=== PATIENT | female | born 1970 | race African-American/Black ===

== ENCOUNTER 2016-09-16 13:26 | Inpatient (IN) | payer BC ==
--- NOTE | 2016-09-16 15:35 | PDOC ---
Attending Attestation - Resident Resident Name: Abdoulaye Bangura - ED Attending Attestation I have performed the following: I have examined & evaluated the patient, The case was reviewed & discussed with the resident, I agree w/resident's findings & plan, Exceptions are as noted - HPI HPI: 09/16/16 17:36 46 yo F presenting to the ER with a complaint of throat pain Pt has a history of HTN and protein C def (on coumadin) and reports 2 days of worsening throat pain. She was seen by Dr Jarvis kent who evaluated upper airways Pt was sent in for admission for suspected epiglottitis. Secretions are manageable. Denies fever, CP, SOB, palpitations, N/V. 09/16/16 17:41 - Physicial Exam PE: 09/16/16 17:44 Pt resting comfortable in bed Pt is NOT assuming sniffer's position No stridor No drooling Lungs clear - Medical Decision Making 09/16/16 17:44 Will give abx Will monitor at nurse's station Will admit to Hospitalist Service Heart Score/ECG Review #1 ECG reviewed & interpreted by me at: 17:49 09/16/16 17:49 Twelve-lead EKG was performed and reviewed by me. There is normal sinus rhythm with a normal rate of 72 bpm. The axis is normal. The intervals are normal - pr : 144ms, QRS:68ms, QTc:453ms. There are no ST elevations or depressions. T wave flattening diffusely, T wave inversion v3, v4
[2016-09-16] MEDS ORDERED: VANCOMYCIN 1 GRAM (PRE-DOCKED) 1,000 MG/250 ML BAG IVPB ONE (15:57)
[2016-09-16] MEDS ORDERED: cefTRIAXone 2 GM/100 ML BAG (PRE-DOCKED) IVPB ONE (15:58)
[2016-09-16] MEDS ORDERED: SODIUM CHLORIDE 1,000 ML IV STA (16:04)
--- NOTE | 2016-09-16 16:06 | PDOC ---
History of Present Illness - General Chief Complaint: Pain Stated Complaint: PCP SENT, POSS.ADMISION Time Seen by Provider: 09/16/16 15:33 History Source: Patient Exam Limitations: Clinical Condition - History of Present Illness Initial Comments: 09/16/16 16:01 46 yo F with significant PMHx of HTN and protein C def (on coumadin) presents with 2 day history of worsening throat pain. She was seen and evaluated today by ENT Dr. Addy Conley and sent for admission for suspected epiglottitis. No alleviating or activating factors. Associated with headache. She is able to maintain airway at this time. She is able to speak in complete sentences. Secretions are manageable. Denies fever, CP, SOB, palpitations, N/V. Timing/Duration: 24 hours Severity: moderate Associated Symptoms: reports: headaches Asa Contraindications(Core Measure): Yes: Receiving Warfarin Past History - Past Medical History Allergies/Adverse Reactions: Allergies Allergy/AdvReac Type Severity Reaction Status Date / Time No Known Drug Allergies Allergy Verified 09/16/16 13:34 Home Medications: Ambulatory Orders Amlodipine Besylate [Norvasc -] 5 mg PO DAILY 03/23/14 Warfarin Sodium [Coumadin] 7.5 mg PO ASDIR 03/23/14 Warfarin Sodium [Coumadin] 10 mg PO ASDIR 03/23/14 Non-Formulary 0 mg PO ASDIR 09/16/16 GI Disorders: Yes (ACID REFLUX) Disorders: Yes (FREQUENT UTI'S) HTN: Yes Other medical history: Protein C def. on coumadin - Surgical History Abdominal Surgery: Yes ( ) Other Surgical History: 09/16/16 16:07 Implanted bladder stimulator for frequent UTI's - Immunization History Immunization Up to Date: Yes - Psycho/Social/Smoking Cessation Hx Anxiety: No Suicidal Ideation: No Smoking History: Never smoked Have you smoked in the past 12 months: No Information on smoking cessation initiated: No Hx Alcohol Use: No Drug/Substance Use Hx: No Substance Use Type: Alcohol Hx Substance Use Treatment: No Review of Systems - Review of Systems Able to Perform ROS?: Yes Is the patient limited Micronesian proficient: No Constitutional: No: Symptoms Reported HEENTM: Yes: Throat Pain, Throat Swelling, Difficulty Swallowing Respiratory: No: Symptoms reported Cardiac (ROS): No: Symptoms Reported ABD/GI: No: Symptoms Reported : No: Symptoms Reported Musculoskeletal: No: Symptoms Reported Integumentary: Yes: Bruising *Physical Exam - Vital Signs Last Vital Signs Temp Pulse Resp BP Pulse Ox 98.2 F 82 18 139/79 100 09/16/16 13:35 09/16/16 13:35 09/16/16 13:35 09/16/16 13:35 09/16/16 13:35 - Physical Exam General Appearance: Yes: Moderate Distress HEENT: positive: Muffled/Hoarse voice, Pharyngeal Erythema Neck: positive: Decreased range of motion, Rigidity, Tender lateral. negative: Stridor Respiratory/Chest: positive: Lungs Clear, Normal Breath Sounds. negative: Respiratory Distress, Accessory Muscle Use Cardiovascular: positive: Regular Rhythm, Regular Rate, S1, S2. negative: Edema , JVD, Murmur Vascular Pulses: Dorsalis-Pedis (R): 2+, Doralis-Pedis (L): 2+ Gastrointestinal/Abdominal: positive: Normal Bowel Sounds, Soft. negative: Organomegaly, Pulsatile Mass Musculoskeletal: positive: Normal Inspection. negative: CVA Tenderness Extremity: positive: Normal Inspection. negative: Tender, Pedal Edema, Swelling , Calf Tenderness Integumentary: positive: Normal Color, Dry, Warm. negative: Cyanotic Neurologic: positive: Fully Oriented, Alert, Normal Mood/Affect Heart Score/ECG Review #1 ECG reviewed & interpreted by me at: 17:50 General ECG Interpretation: Sinus Rhythm, Normal Rate, Normal Intervals, No acute ischemic changes - ECG Intrepretation Rhythm: Regular Rhythm - [place]: Normal - ECG Impressions Normal ECG: Yes ED Treatment Course - LABORATORY CBC & Chemistry Diagram: 09/16/16 16:00 09/16/16 16:00 Medical Decision Making - Medical Decision Making 09/16/16 16:14 46 yo F with significant PMHx of HTN and protein C def (on coumadin) presents with 2 day history of worsening throat pain. Seen and evaluated by Dr. Addy Conley. Sent to ER for admission for suspected epiglottis. * CBC, CMP, PT/INR. * Given 1x dose Rocephin and Vancomycin. Maintaining airway and handling secretion. * IVF with NS. * Will contact Hospitalist service for admission. *DC/Admit/Observation/Transfer Diagnosis at time of Disposition: Epiglottitis - Discharge Dispostion Condition at time of disposition: Stable Admit: Yes - Referrals Referrals: Hermilo Alarcon MD [Primary Care Provider] -
[2016-09-16] MEDS ORDERED: CEFTRIAXONE 100 ML IVPB ONE (16:31)
[2016-09-16 16:39] LABS: BASOPHIL 1.2 % (0-2.0); MCH 25.8 pg (25.7-33.7); MCHC 31.9 g/dl (32.0-36.0); MEAN CELL VOLUME 80.9 fl (80-96); MEAN PLT VOLUME 8.1 fl (7.5-11.1); NEUTROPHILS 53.2 % (42.8-82.8); PLATELET COUNT 348 K/MM3 (134-434); WHITE BLOOD COUNT 6.5 K/mm3 (4.0-10.0)
[2016-09-16 17:07] LABS: ALBUMIN 4.1 g/dl (3.4-5.0); ANION GAP 11 (8-16); BILIRUBIN,TOTAL 0.7 mg/dL (0.2-1.0); CALCIUM 9.5 mg/dL (8.5-10.1); CO2 24 mmol/L (21-32); CREATININE 0.8 mg/dL (0.55-1.02); GLUCOSE,RANDOM 89 mg/dL (74-106); TOT PROT 7.6 g/dl (6.4-8.2)
[2016-09-16] MEDS ORDERED: VANCOMYCIN 1 GRAM (PRE-DOCKED) 250 ML IVPB ONE (17:21)
[2016-09-16 17:45] LABS: ALK PHOS 117 U/L (45-117); SGOT/AST 23 U/L (15-37)
[2016-09-16 18:06] LABS: PROTHROMBIN TIME (PATIENT) 57.3 SEC (9.98-11.88)
[2016-09-16 18:13] LABS: SGPT/ALT 26 U/L (12-78)
[2016-09-16 19:44] LABS: INR 5.04 (0.82-1.09)
--- NOTE | 2016-09-16 20:37 | HP ---
CHIEF COMPLAINT: sore throat PCP: Dr. Alarcon HISTORY OF PRESENT ILLNESS: This is a 46 year old female with a past medical history of HTN, protein C def, GERD, recurrent UTIs presented to the ED with a sore throat x 2 days. She was seen by ENT who recommended her to come here for admission for IV antibiotics. Pt reports she has been unable to eat or drink anything due to the pain. She is able to swallow secretions. She is not having any difficulty breathing; in fact sleeping comfortable curled in a ball with neck in flexed position upon approach. She denies any fever or cough. Pt reports that she had an allergic reaction to "the last antibiotic". [facility] nurse who states it was vancomycin, pt reported a hot/flushed feeling all over her body with hives. Nurse denies any true hives, states that she became very red on the left side of her face with some small bumps. All symptoms relieved by benadryl 50mg IVP ER course was notable for: (1) given vanco and ceftriaxone (2) WBC 6.5 (3) Recent Travel: pt denies PAST MEDICAL HISTORY: HTN Protein C deficiency-h/o DVT/PE GERD UTIs PAST SURGICAL HISTORY: implanted bladder stimulator tubal ligation Social History: Smoking:pt denies Alcohol: pt denies Drugs: pt denies Allergies No Known Drug Allergies Allergy (Verified 09/16/16 13:34) HOME MEDICATIONS: 3 Medication Instructions Recorded Amlodipine Besylate [Norvasc -] 5 mg PO DAILY 03/23/14 Warfarin Sodium [Coumadin] 7.5 mg PO ASDIR 03/23/14 Warfarin Sodium [Coumadin] 10 mg PO ASDIR 03/23/14 Non-Formulary 0 mg PO ASDIR 09/16/16 REVIEW OF SYSTEMS CONSTITUTIONAL: Absent: fever, chills, diaphoresis, generalized weakness, malaise, loss of appetite, weight change HEENT: Present: throat pain, difficulty swallowing Absent: rhinorrhea, nasal congestion, throat swelling, mouth swelling, ear pain , eye pain, visual changes CARDIOVASCULAR: Absent: chest pain, syncope, palpitations, irregular heart rate, lightheadedness , peripheral edema RESPIRATORY: Absent: cough, shortness of breath, dyspnea with exertion, orthopnea, wheezing, stridor, hemoptysis GASTROINTESTINAL: Absent: abdominal pain, abdominal distension, nausea, vomiting, diarrhea, constipation, melena, hematochezia GENITOURINARY: Absent: dysuria, frequency, urgency, hesitancy, hematuria, flank pain, genital pain MUSCULOSKELETAL: Absent: myalgia, arthralgia, joint swelling, back pain, neck pain SKIN: Absent: rash, itching, pallor HEMATOLOGIC/IMMUNOLOGIC: Absent: easy bleeding, easy bruising, lymphadenopathy, frequent infections ENDOCRINE: Absent: unexplained weight gain, unexplained weight loss, heat intolerance, cold intolerance NEUROLOGIC: Absent: headache, focal weakness or paresthesias, dizziness, unsteady gait, seizure, mental status changes, bladder or bowel incontinence PSYCHIATRIC: Absent: anxiety, depression, suicidal or homicidal ideation, hallucinations. PHYSICAL EXAMINATION Vital Signs - 24 hr 3 09/16/16 13:35 Temperature 98.2 F Pulse Rate 82 Respiratory 18 Rate Blood Pressure 139/79 O2 Sat by Pulse 100 Oximetry (%) GENERAL: Awake, alert, and fully oriented, in no acute distress. HEAD: Normal with no signs of trauma. EYES: Pupils equal, round and reactive to light, extraocular movements intact, sclera anicteric, conjunctiva clear. No lid lag. EARS, NOSE, THROAT: Ears normal, nares patent, oropharynx clear without exudates. Moist mucous membranes. unable to visualize posterior pharynx, tongue depressor exam deferred. NECK: Normal range of motion, supple without lymphadenopathy, JVD, or masses. LUNGS: Breath sounds equal, clear to auscultation bilaterally. No wheezes, and no crackles. No accessory muscle use. HEART: Regular rate and rhythm, normal S1 and S2 without murmur, rub or gallop. ABDOMEN: Soft, nontender, not distended, normoactive bowel sounds, no guarding, no rebound, no masses. No hepatomegaly or splenomegaly. MUSCULOSKELETAL: Normal range of motion at all joints. No bony deformities or tenderness. No CVA tenderness. UPPER EXTREMITIES: 2+ pulses, warm, well-perfused. No cyanosis. No clubbing. No peripheral edema. LOWER EXTREMITIES: 2+ pulses, warm, well-perfused. No calf tenderness. No peripheral edema. NEUROLOGICAL: Cranial nerves II-XII intact. Normal speech. Normal gait. PSYCHIATRIC: Cooperative. Good eye contact. Appropriate mood and affect. SKIN: Warm, dry, normal turgor, no rashes or lesions noted, normal capillary refill. Laboratory Results - last 24 hr 3 09/16/16 09/16/16 09/16/16 16:00 16:00 16:15 WBC 6.5 RBC 4.77 Hgb 12.3 Hct 38.6 MCV 80.9 MCHC 31.9 L RDW 15.0 Plt Count 348 MPV 8.1 Neutrophils % 53.2 Lymphocytes % 33.4 Monocytes % 10.2 Eosinophils % 2.0 Basophils % 1.2 INR 5.04 H* D Sodium 144 Potassium 4.8 Chloride 109 H Carbon Dioxide 24 Anion Gap 11 BUN 11 D Creatinine 0.8 Creat Clearance w eGFR > 60 Random Glucose 89 Calcium 9.5 Total Bilirubin 0.7 D AST 23 D ALT 26 D Alkaline Phosphatase 117 D Total Protein 7.6 Albumin 4.1 ECG: NSR Rate 72, QTC 483, T wave flattening noted, inversions V3-V5, No acute DE ASSESSMENT/PLAN: 46yF with PMH HTN, protein C def, DVT, PE, GERD, UTIs presented with sore throat. She is being admitted for epiglottitis. Epiglottitis - cont ceftriaxone and vancomycin. Reaction to vancomycin likely lane syndrome, will administer over 2 hours - ENT consult appreciated. - admit to tele with continuous pulse oximetry monitoring HTN - cont home norvasc Protein C deficiency - INR 5. Will hold coumadin, daily INR, restart when less than 3 GERD - on no meds at home, monitor need for PPX DVT PPX - low risk, cont home coumadin when INR returns to normal. Dispo: Pt currently requires inpatient care for management of her emergent condition. Visit type - Emergency Visit Emergency Visit: Yes ED Registration Date: 09/16/16 Care time: The patient presented to the Emergency Department on the above date and was hospitalized for further evaluation of their emergent condition. - New Patient This patient is new to me today: Yes Date on this admission: 09/16/16 - Critical Care Critical Care patient: No
[2016-09-16] MEDS: SODIUM CHLORIDE 1,000 ML IV SCH (21:16)
[2016-09-17 07:55] LABS: BASOPHIL 1.1 % (0-2.0); EOSINOPHIL 2.9 % (0-4.5); MCH 26.5 pg (25.7-33.7); MCHC 32.3 g/dl (32.0-36.0); MEAN CELL VOLUME 81.9 fl (80-96); NEUTROPHILS 55.5 % (42.8-82.8); PLATELET COUNT 289 K/MM3 (134-434); RDW 14.9 % (11.6-15.6); WHITE BLOOD COUNT 6.3 K/mm3 (4.0-10.0)
[2016-09-17 08:05] LABS: PROTHROMBIN TIME (PATIENT) 61.4 SEC (9.98-11.88)
[2016-09-17 08:12] LABS: ALBUMIN 3.4 g/dl (3.4-5.0); ALK PHOS 102 U/L (45-117); ANION GAP 8 (8-16); BILIRUBIN,TOTAL 0.4 mg/dL (0.2-1.0); CALCIUM 8.4 mg/dL (8.5-10.1); CO2 26 mmol/L (21-32); CREATININE 0.8 mg/dL (0.55-1.02); GLUCOSE,RANDOM 91 mg/dL (74-106); MAGNESIUM 2.1 mg/dL (1.8-2.4); SGOT/AST 14 U/L (15-37); SGPT/ALT 20 U/L (12-78); TOT PROT 6.1 g/dl (6.4-8.2)
[2016-09-17 08:14] LABS: INR 5.39 (0.82-1.09)
[2016-09-17] MEDS ORDERED: amLODIPine BESYLATE 5 MG TABLET (FP) ONE (09:34)
[2016-09-17] MEDS: amLODIPine BESYLATE 5 MG TABLET (FP) PO SCH (09:36)
[2016-09-17] MEDS: SODIUM CHLORIDE 1,000 ML IV SCH ×2 (13:00→22:12)
[2016-09-17] MEDS ORDERED: methylPREDNISolone NA SUCC 40 MG/1 ML VIAL IVPB ONE ×2 (13:01→13:30)
--- NOTE | 2016-09-17 13:04 | PN ---
Physical Exam: SUBJECTIVE: Patient seen and examined. Denies any chest pain, states she feels like her throat is still swollen. Denies shortness of breath. OBJECTIVE: Pt resting comfortable in bed, speaking in a hoarse voice No stridor, no drooling, lungs are clear to auscultation Solumedrol 60mg x 1 ordered/Benadryl 25mg iv push x 1 ordered Will put on scheduled solumedrol States she last took her Coumadin on Friday; none since On exam, no swelling of tongue, or tonsils Neck xray once urine bcg negative Vital Signs Period Temp Pulse Resp BP Sys/Martinez Pulse Ox Last 24 Hr 98 F-98.4 F 68-79 18-20 124-139/59-78 98-100 GENERAL: The patient is awake, alert, and fully oriented, in no acute distress. HEAD: Normal with no signs of trauma. EYES: PERRL, extraocular movements intact, sclera anicteric, conjunctiva clear. No ptosis. ENT: Ears normal, nares patent, oropharynx clear without exudates, moist mucous membranes. NECK: Trachea midline, full range of motion, supple. LUNGS: Breath sounds equal, clear to auscultation bilaterally, no wheezes, no crackles, no accessory muscle use. HEART: Regular rate and rhythm, S1, S2 without murmur, rub or gallop. ABDOMEN: Soft, nontender, nondistended, normoactive bowel sounds, no guarding, no rebound, no hepatosplenomegaly, no masses. EXTREMITIES:no edema. NEUROLOGICAL: Normal speech, gait not observed. PSYCH: Normal mood, normal affect. SKIN: Warm, dry, normal turgor, no rashes or lesions noted Laboratory Results - last 24 hr 09/17/16 09/17/16 09/17/16 06:56 06:56 06:56 WBC 6.3 RBC 4.38 Hgb 11.6 Hct 35.9 MCV 81.9 MCHC 32.3 RDW 14.9 Plt Count 289 MPV 8.0 Neutrophils % 55.5 Lymphocytes % 26.4 D Monocytes % 14.1 H Eosinophils % 2.9 Basophils % 1.1 INR 5.39 H* Sodium 147 H Potassium 3.9 Chloride 113 H Carbon Dioxide 26 Anion Gap 8 BUN 8 D Creatinine 0.8 Creat Clearance w eGFR > 60 Random Glucose 91 Calcium 8.4 L Magnesium 2.1 Total Bilirubin 0.4 D AST 14 L D ALT 20 D Alkaline Phosphatase 102 Total Protein 6.1 L Albumin 3.4 Active Medications Generic Name Dose Route Start Last Admin Trade Name Christopher PRN Reason Stop Dose Admin Amlodipine Besylate 5 mg 09/17/16 10:00 09/17/16 09:36 Norvasc - PO Not Given DAILY PITO Ceftriaxone Sodium 2 gm 09/17/16 13:00 Rocephin 2gm Ivpb (Pre-Docked) IVPB DAILY PITO Protocol Diphenhydramine HCl 25 mg 09/17/16 13:03 Benadryl Injection - IVPUSH 09/17/16 13:04 ONCE ONE Sodium Chloride 1,000 mls @ 100 mls/hr 09/16/16 21:15 09/16/16 21:16 Normal Saline - IV 100 mls/hr ASDIR PITO Administration Clindamycin Phosphate 50 mls @ 100 mls/hr 09/17/16 13:00 Cleocin 600 Mg Premix Ivpb - IVPB Q8H-IV PITO Methylprednisolone Sodium Succinate 60 mg 09/17/16 13:01 Solu-Medrol - IVPB 09/17/16 13:02 ONCE ONE ASSESSMENT/PLAN: Patient is a 46 year old female with a signficant past medical history of protein C def. (on Coumadin), DVT, PE, GERD and UTI with a implanted bladder stimulator. She was sent to the ED after she developed a sudden onset of throat pain on Friday which worsened and hindered her ability to eat. She went to see Dr. Conley and a laryngoscopy was performed. He noted her to have anterior epiglottis edema without airway compromise. She was sent to the ED for IV antibiotics and received Rocephin and Vancomycin but had hives during Vanco infusion. On exam, patient was resting comfortably in bed, speaking in a raspy voice. Her lungs were clear to auscultation, no strider, no wheezing. She was given 1 dose of Solumedrol 60mg x 1 in ED. Will put her on scheduled Solumedrol. Head/Neck: Epiglottitis - acute Assessment/Plan: On Ceftriaxone and Clindamycin per ID ENT following Neck xray ordered Given Solumedrol 60mg @ 1pm today, will continue with Solumedrol 40mg q6 Cardiology: Assessment/Plan: On Norvasc monitor BP Hematology Protein C deficiency Assessment/Plan: INR 5.04>5.39, on home coumadin of 7.5mg and alternates with Coumadin 10mg States last dose of Coumadin was on Friday Monitor INR (goal 2-3) Prophylaxis: DVT: On coumadin, supratherapeutic INR - bleeding risk GI: Protonix Disposition: Pt currently requires inpatient care. Full code. Visit type - Emergency Visit Emergency Visit: Yes ED Registration Date: 09/16/16 Care time: The patient presented to the Emergency Department on the above date and was hospitalized for further evaluation of their emergent condition. - New Patient This patient is new to me today: Yes Date on this admission: 09/17/16 - Critical Care Critical Care patient: No - Discharge Referral Referred to [facility] No
--- NOTE | 2016-09-17 13:18 | EKG ---
Test Reason : Blood Pressure : / mmHG Vent. Rate : 072 BPM Atrial Rate : 072 BPM P-R Int : 144 ms QRS Dur : 068 ms QT Int : 414 ms P-R-T Axes : 044 006 -27 degrees QTc Int : 453 ms NORMAL SINUS RHYTHM NONSPECIFIC T WAVE ABNORMALITY ABNORMAL ECG WHEN COMPARED WITH ECG OF 23-FEB-2016 17:12, NO SIGNIFICANT CHANGE WAS FOUND CLINICAL CORRELATION IS RECOMMENDED Confirmed by MEJIA HOWARD, KEDAR ([id number]) on 09/17/2016 1:18:09 PM Referred By: Confirmed By:KEDAR BA MD
--- NOTE | 2016-09-17 13:37 | CONSULT ---
Consult Consult Specialty:: ENT Reason for Consultation:: throat pain - History of Present Illness Chief Complaint: throat pain History of Present Illness: pt had cough ~1 wk ago, improved, then awoke morning of 09-15-16 with throat pain , has become worse, unable to eat or drink. no prior throat problems, no cough, breathing is comfortable flexible laryngoscopy in office 09-16-16 showed edema of vallecula and anterior surface of epiglottis, airway patent. Dx early epiglottitis, pt referred to ER for further evaluation and management, admitted to hospitalist service, IV fluids in progress, IV antibiotics infusing, Infectious Disease consultation noted. since yesterday pt still not able to swallow well, but less pain, notes less swelling of neck PMD HTN and DVT, on amlodipine and warfarin. yesterday INR 5, so warfarin held. WBC normal, cultures pending - History Source History Provided By: Patient Limitations to Obtaining History: No Limitations - Past Medical History Cardio/Vascular: Yes: Deep Vein Thrombosis, HTN ...LMP: 04/09/15 Musculoskeletal: Yes: Other (Acute back pain) - Past Surgical History Past Surgical History: Yes: - Alcohol/Substance Use Hx Alcohol Use: No History of Substance Use: reports: None - Smoking History Smoking history: Never smoked Have you smoked in the past 12 months: No - Social History Usual Living Arrangement: With Spouse ADL: Independent Home Medications - Allergies Allergies/Adverse Reactions: Allergies Allergy/AdvReac Type Severity Reaction Status Date / Time No Known Drug Allergies Allergy Verified 09/16/16 13:34 - Home Medications Home Medications: Ambulatory Orders Amlodipine Besylate [Norvasc -] 5 mg PO DAILY 03/23/14 Warfarin Sodium [Coumadin] 7.5 mg PO ASDIR 03/23/14 Warfarin Sodium [Coumadin] 10 mg PO ASDIR 03/23/14 Non-Formulary 0 mg PO ASDIR 09/16/16 Review of Systems - Review of Systems HENT: reports: Throat Pain Neck: reports: Swollen Glands Physical Exam Vital Signs: Vital Signs Temperature 98.4 F 09/17/16 12:39 Pulse Rate 78 09/17/16 12:39 Respiratory Rate 20 09/17/16 12:39 Blood Pressure 139/75 09/17/16 12:39 O2 Sat by Pulse Oximetry (%) 98 09/17/16 07:00 Constitutional: Yes: Well Nourished, Mild Distress Eyes: Yes: WNL HENT: Yes: Other (oral cavity and oropharynx normal Flexible laryngoscopy: airway patent, no lesions ++watery edema bilateral vallecula and epiglottis ( anterior surface only), no exudate, VC mobile symmetric, voice clear and strong , no stridor or respiratory distress, handling secretions well, NO drooling, no retractions or accessory muscle use) Neck: Yes: Other (mild submental swelling, no induration or fluctuance) Respiratory: Yes: WNL Extremities: Yes: WNL Neurological: Yes: WNL, Alert, Oriented Labs: CBC, BMP 09/17/16 06:56 09/17/16 06:56 Imaging - Results Chest X-ray: Report Reviewed Assessment/Plan Impression acute throat pain, laryngoscopy findings suggest early epiglottitis pt unable to swallow, admitted for IV medications and IV fluids some interim improvement since yesterday but still not taking po Recommend: continue IV fluids, advance diet as tolerated ID consultation appreciated continue IV antibiotics once po adequate then consider change to po antibiotics restart warfarin as per hospitalist. Addy Conley MD
--- NOTE | 2016-09-17 13:40 | PN ---
Progress Note (short form) - Note Progress Note: ID consult dictated d/w Dr Conley and hospitalist 46 year old female developed sudden onset of throat discomfort Friday, no fevers or chills, unable to eat on Friday went to ENT Dr Conley who performent laryngoscopy in the office and noted anterior epiglottis edema- airway was NOT compromised, no drooling or difficulty with secretions He sent her to ED for IVF and IV antibiotics- she received rocephin and vancomycin (had hives to Vancomycin) this am feels a bit better, still with throat discomfort, reports neck swellling is improved no headache, no nausea or vomiting NKDA epiglottitis appears quite comfortable suggest continuing ceftriaxone, add clindamycin for MRSA coverage ENT f/u today consider adding steroids IVF to continue Problem List - Problems (1) Epiglottitis Code(s): J05.10 - ACUTE EPIGLOTTITIS WITHOUT OBSTRUCTION
[2016-09-17] MEDS: cefTRIAXone 2 GM/100 ML BAG (PRE-DOCKED) IVPB SCH (13:49)
--- NOTE | 2016-09-17 14:08 | CONS ---
DATE OF CONSULTATION: DATE OF DICTATION: 09/17/2016 This is a 46-year-old woman with a past medical history of hypertension, protein C deficiency, GERD, recurrent UTIs, who presented to the emergency room with sore throat that developed on Friday. She reports she has not been able to eat or drink anything due to the pain. She reports no shortness of breath. She has no cough. She has no drooling. She is able to swallow her secretions. She is not having any trouble breathing. There is no fever. Yesterday she self-referred herself to ENT. She saw Dr. Conley in the office with these complaints. He did a direct laryngoscopy. He felt her anterior epiglottis was inflamed and had some edema, and he felt her airway was completely intact and he referred her to the emergency room for admission for fluids and IV antibiotics. He did not feel at that time that she required any imaging as he had visualized her airway and it was normal. She was treated in the emergency room with ceftriaxone and vancomycin, and she reported that she had hives with the vancomycin, which was confirmed by the nurse. She otherwise is resting comfortably. There is no history of any recent travel. PAST MEDICAL HISTORY: Notable for hypertension, protein C deficiency, history of DVT, PE. There is history of GERD and UTI. PAST SURGICAL HISTORY: Notable for a bladder stimulator, , tubal ligation. SOCIAL HISTORY: There is no history of any substance use. 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 ALLERGIES: She has no known drug allergies. MEDICATIONS: Her medications at home include amlodipine, Coumadin. FAMILY HISTORY: Noncontributory. REVIEW OF SYSTEMS: She reports that overnight she is feeling a little bit better, but she still is having discomfort on swallowing. Reports no drooling. She has no headache. She has no nausea or vomiting. She has had no fevers or chills. She has no history of strep throat, and she has no rash. PHYSICAL EXAMINATION: General: She is awake and alert. She looks quite comfortable. Vital Signs: Temperature is 98.4, pulse of 78. Blood pressure is 139/75. Respiratory rate is 20. She is saturating 98% on room air. HEENT: She is normocephalic. Her eyes are anicteric. Neck: Supple. She has no trismus. She is able to open her mouth easily. She has a large submandibular lymph node located in the middle of her jaw. Her neck is supple. I did not attempt to visualize her posterior pharynx. Lungs: Clear to auscultation. Heart: Regular rate and rhythm. Abdomen: Soft, nontender. Extremities: Without edema. She has no rash. LABORATORY: Notable for a white count of 6.3, hemoglobin 11.6. Platelets are 289. INR is 5. BUN and creatinine are 8 and 0.8, and blood cultures are pending. SUMMARY: This is a 46-year-old woman admitted with epiglottic edema on direct laryngoscopy. She appears quite comfortable. I would suggest continuing ceftriaxone given her reaction to the vancomycin. Would add clindamycin for methicillin-resistant Staphylococcus aureus coverage. I spoke with Dr. Conley, who will return to see the patient today. Will hold on any imaging until he evaluates her. Would consider adding steroids, which I discussed with him as well, and IV fluids to continue. Further recommendations to follow based on her clinical course. DANIEL LYNN M.D. [id number]
[2016-09-17] MEDS: CLINDAMYCIN 600MG PREMIX IVPB 50 ML IVPB SCH ×2 (14:41→19:11)
[2016-09-17 16:03] VITALS: BMI 29.7
[2016-09-17] MEDS: methylPREDNISolone NA SUCC 40 MG/1 ML VIAL IVPB SCH ×2 (19:10→22:12)
[2016-09-17] MEDS: PANTOPRAZOLE 40 MG TABLET (FP) PO SCH (19:16)
[2016-09-18] MEDS: CLINDAMYCIN 600MG PREMIX IVPB 50 ML IVPB SCH ×3 (01:38→17:34)
[2016-09-18] MEDS: methylPREDNISolone NA SUCC 40 MG/1 ML VIAL IVPB SCH ×4 (02:40→22:33)
[2016-09-18 07:57] LABS: BASOPHIL 0.4 % (0-2.0); EOSINOPHIL 0.1 % (0-4.5); MCH 26.5 pg (25.7-33.7); MCHC 32.4 g/dl (32.0-36.0); MEAN CELL VOLUME 81.8 fl (80-96); MEAN PLT VOLUME 8.2 fl (7.5-11.1); NEUTROPHILS 82.9 % (42.8-82.8); PLATELET COUNT 328 K/MM3 (134-434); RDW 14.7 % (11.6-15.6); WHITE BLOOD COUNT 12.1 K/mm3 (4.0-10.0)
[2016-09-18 08:13] LABS: PROTHROMBIN TIME (PATIENT) 47.7 SEC (9.98-11.88)
[2016-09-18 08:19] LABS: INR 4.21 (0.82-1.09)
[2016-09-18 08:22] LABS: ALBUMIN 3.5 g/dl (3.4-5.0); ANION GAP 11 (8-16); BILIRUBIN,TOTAL 0.3 mg/dL (0.2-1.0); CALCIUM 9.1 mg/dL (8.5-10.1); CO2 25 mmol/L (21-32); CREATININE 0.8 mg/dL (0.55-1.02); GLUCOSE,RANDOM 119 mg/dL (74-106); SGOT/AST 11 U/L (15-37); SGPT/ALT 19 U/L (12-78); TOT PROT 6.9 g/dl (6.4-8.2)
[2016-09-18 08:23] LABS: ALK PHOS 115 U/L (45-117)
[2016-09-18] MEDS: amLODIPine BESYLATE 5 MG TABLET (FP) PO SCH (09:37)
[2016-09-18] MEDS: cefTRIAXone 2 GM/100 ML BAG (PRE-DOCKED) IVPB SCH (09:37)
[2016-09-18] MEDS: PANTOPRAZOLE 40 MG TABLET (FP) PO SCH (09:37)
--- NOTE | 2016-09-18 12:45 | PN ---
Progress Note (short form) - Note Progress Note: ENT pt feeling better today, ate solid food for lunch, no pain. No breathing trouble methylprednisolone ordered last night VSS NAD oral cavity, oropharynx clear voice clear and strong, no stridor or respiratory distress neck supple, no mass, no fluctuance or induration Data: WBC 12 INR 4.78 (still elevated) Impression early epiglottitis, improved. pt now able to take oral solids mild leukocytosis, likely related to steroids INR remains elevated Recommend: diet as tolerated OK for discharge from ENT perspective after transition to oral antibiotics as per Infectious Disease also need to get INR into therapeutic range outpatient ENT follow-up 7-10 days Addy Conley MD
--- NOTE | 2016-09-18 16:59 | PN ---
Progress Note (short form) - Note Progress Note: overall improved starting to eat Vital Signs Period Temp Pulse Resp BP Sys/Martinez Pulse Ox Last 24 Hr 98.0 F-98.4 F 66-82 16-20 106-135/62-74 99-100 +submental swelling less cor-rrr llungs clear abd soft,nt ext no edema CBC, BMP 09/18/16 06:50 09/18/16 06:50 Microbiology 09/16/16 16:00 Blood - Peripheral Venous Blood Culture - Preliminary NO GROWTH OBTAINED AFTER 48 HOURS, INCUBATION TO CONTINUE FOR 3 DAYS. 09/16/16 16:00 Blood - Peripheral Venous Blood Culture - Preliminary NO GROWTH OBTAINED AFTER 48 HOURS, INCUBATION TO CONTINUE FOR 3 DAYS. a/p epiglotitis- improving continue rocephin/clindaymcin not sure she can swallow pills yet she is improving elevated INR Problem List - Problems (1) Epiglottitis Code(s): J05.10 - ACUTE EPIGLOTTITIS WITHOUT OBSTRUCTION
--- NOTE | 2016-09-18 17:12 | PN ---
Progress Note, Physician Chief Complaint: Ms Lambert says she is feeling better today, says she is improving and swallowing. No cp, sob, n/v. - Current Medication List Current Medications: Active Medications Amlodipine Besylate (Norvasc -) 5 mg PO DAILY [facility] Last Admin: 09/18/16 09:37 Dose: 5 mg Ceftriaxone Sodium (Rocephin 2gm Ivpb (Pre-Docked)) 2 gm IVPB DAILY [facility] PRN Reason: Protocol Last Admin: 09/18/16 09:37 Dose: 2 gm Sodium Chloride (Normal Saline -) 1,000 mls @ 100 mls/hr IV ASDIR [facility] Last Admin: 09/17/16 22:12 Dose: Not Given Clindamycin Phosphate (Cleocin 600 Mg Premix Ivpb -) 50 mls @ 100 mls/hr IVPB Q8H-IV [facility] Last Admin: 09/18/16 09:37 Dose: 100 mls/hr Methylprednisolone Sodium Succinate (Solu-Medrol -) 40 mg IVPB Q6H-IV [facility] Last Admin: 09/18/16 08:34 Dose: 40 mg Pantoprazole Sodium (Protonix -) 40 mg PO DAILY [facility] Last Admin: 09/18/16 09:37 Dose: 40 mg - Objective Vital Signs: Vital Signs Temperature 98.1 F 09/18/16 14:56 Pulse Rate 82 09/18/16 14:56 Respiratory Rate 18 09/18/16 14:56 Blood Pressure 135/74 09/18/16 14:56 O2 Sat by Pulse Oximetry (%) 99 09/18/16 14:00 Constitutional: Yes: Well Nourished, No Distress, Calm Cardiovascular: Yes: Regular Rate and Rhythm. No: Gallop, Murmur, Rub Respiratory: Yes: Regular, CTA Bilaterally. No: Rales, Rhonchi, Wheezes Gastrointestinal: Yes: Normal Bowel Sounds, Soft. No: Distention, Tenderness Extremities: Yes: WNL Edema: No Labs: CBC, BMP 09/18/16 06:50 09/18/16 06:50 INR, PTT INR 4.21 (0.82-1.09) H* 09/18/16 06:50 Problem List - Problems (1) Epiglottitis Assessment/Plan: -case d/w ENT -much improved -continue solumedrol -ID following, continue IV antibiotics -suspect leukocytosis secondary to steroids Code(s): J05.10 - ACUTE EPIGLOTTITIS WITHOUT OBSTRUCTION (2) HTN (hypertension) Assessment/Plan: -continue amlodipine Code(s): I10 - ESSENTIAL (PRIMARY) HYPERTENSION
[2016-09-18] MEDS: SODIUM CHLORIDE 1,000 ML IV SCH (22:33)
[2016-09-18] MEDS ORDERED: MAG HYDROX/AL HYDROX/SIMETH 30 ML UNIT-DOSE CUP PO PRN (23:06)
[2016-09-19] MEDS: CLINDAMYCIN 600MG PREMIX IVPB 50 ML IVPB SCH ×2 (02:27→11:18)
[2016-09-19] MEDS: methylPREDNISolone NA SUCC 40 MG/1 ML VIAL IVPB SCH ×2 (02:27→09:33)
[2016-09-19 08:15] LABS: CALCIUM 8.5 mg/dL (8.5-10.1); COCKROFT - GAULT 993.4035; CREATININE 0.9 mg/dL (0.55-1.02); MAGNESIUM 1.9 mg/dL (1.8-2.4); MCH 26.5 pg (25.7-33.7); MCHC 32.8 g/dl (32.0-36.0); MEAN PLT VOLUME 8.4 fl (7.5-11.1); PHOSPHOROUS 2.9 mg/dL (2.5-4.9); PLATELET COUNT 324 K/MM3 (134-434); RDW 14.4 % (11.6-15.6); WHITE BLOOD COUNT 20.5 K/mm3 (4.0-10.0)
[2016-09-19] MEDS: PANTOPRAZOLE 40 MG TABLET (FP) PO SCH (10:12)
[2016-09-19] MEDS: cefTRIAXone 2 GM/100 ML BAG (PRE-DOCKED) IVPB SCH (10:12)
[2016-09-19] MEDS: amLODIPine BESYLATE 5 MG TABLET (FP) PO SCH (10:12)
[2016-09-19 11:46] LABS: PLATELET ESTIMATE ADEQUATE (NORMAL)
[2016-09-19 12:17] VITALS: TEMP 98.1
--- NOTE | 2016-09-19 12:19 | PN ---
Progress Note, Physician Chief Complaint: Ms Lambert says she is feeling better today, says her swallowing feels almost normal. No cp, sob, n/v. - Current Medication List Current Medications: Active Medications Al Hydroxide/Mg Hydroxide (Mylanta Oral Suspension -) 15 ml PO Q8H PRN PRN Reason: INDIGESTION Last Admin: 09/18/16 23:17 Dose: 15 ml Amlodipine Besylate (Norvasc -) 5 mg PO DAILY [facility] Last Admin: 09/19/16 10:12 Dose: 5 mg Ceftriaxone Sodium (Rocephin 2gm Ivpb (Pre-Docked)) 2 gm IVPB DAILY [facility] PRN Reason: Protocol Last Admin: 09/19/16 10:12 Dose: 2 gm Sodium Chloride (Normal Saline -) 1,000 mls @ 100 mls/hr IV ASDIR [facility] Last Admin: 09/18/16 22:33 Dose: Not Given Clindamycin Phosphate (Cleocin 600 Mg Premix Ivpb -) 50 mls @ 100 mls/hr IVPB Q8H-IV [facility] Last Admin: 09/19/16 11:18 Dose: 100 mls/hr Methylprednisolone Sodium Succinate (Solu-Medrol -) 40 mg IVPB Q6H-IV [facility] Last Admin: 09/19/16 09:33 Dose: 40 mg Pantoprazole Sodium (Protonix -) 40 mg PO DAILY [facility] Last Admin: 09/19/16 10:12 Dose: 40 mg - Objective Vital Signs: Vital Signs Temperature 98.1 F 09/19/16 10:00 Pulse Rate 79 09/19/16 10:00 Respiratory Rate 20 09/19/16 10:00 Blood Pressure 124/76 09/19/16 10:00 O2 Sat by Pulse Oximetry (%) 98 09/18/16 21:11 Constitutional: Yes: Well Nourished, No Distress, Calm Cardiovascular: Yes: Regular Rate and Rhythm. No: Gallop, Murmur, Rub Respiratory: Yes: Regular, CTA Bilaterally. No: Rales, Rhonchi, Wheezes Gastrointestinal: Yes: Normal Bowel Sounds, Soft. No: Distention, Tenderness Extremities: Yes: WNL Edema: No Labs: CBC, BMP 09/19/16 06:15 09/19/16 06:15 INR, PTT INR 4.21 (0.82-1.09) H* 09/18/16 06:50 Problem List - Problems (1) Epiglottitis Code(s): J05.10 - ACUTE EPIGLOTTITIS WITHOUT OBSTRUCTION (2) HTN (hypertension) Code(s): I10 - ESSENTIAL (PRIMARY) HYPERTENSION Assessment/Plan (1) Epiglottitis Assessment/Plan: -continues to improve, says swallowing almost normal -eating diet without difficulty -will stop IV steroids -awaiting ID recommendations on antibiotics -possible discharge today -leukocytosis secondary to high dose steroids Code(s): J05.10 - ACUTE EPIGLOTTITIS WITHOUT OBSTRUCTION (2) HTN (hypertension) Assessment/Plan: -continue amlodipine Code(s): I10 - ESSENTIAL (PRIMARY) HYPERTENSION
[2016-09-19 15:09] VITALS: BP 138/85; PULSE 77
--- NOTE | 2016-09-19 15:22 | PN ---
Progress Note (short form) - Note Progress Note: overall improved day #4 antibiotics regular diet today Vital Signs Period Temp Pulse Resp BP Sys/Martinez Pulse Ox Last 24 Hr 97.9 F-98.3 F 73-81 18-20 115-138/68-85 98-99 submandibular swelling resolved cor-rrr lungs clear abd soft,nt ext no edema CBC, BMP 17 06:15 09/19/16 06:15 Current Medications Al Hydroxide/Mg Hydroxide (Mylanta Oral Suspension -) 15 ml PO Q8H PRN PRN Reason: INDIGESTION Last Admin: 09/18/16 23:17 Dose: 15 ml Amlodipine Besylate (Norvasc -) 5 mg PO DAILY [facility] Last Admin: 09/19/16 10:12 Dose: 5 mg Ceftriaxone Sodium (Rocephin 2gm Ivpb (Pre-Docked)) 2 gm IVPB DAILY [facility] PRN Reason: Protocol Last Admin: 09/19/16 10:12 Dose: 2 gm Sodium Chloride (Normal Saline -) 1,000 mls @ 100 mls/hr IV ASDIR [facility] Last Admin: 09/18/16 22:33 Dose: Not Given Clindamycin Phosphate (Cleocin 600 Mg Premix Ivpb -) 50 mls @ 100 mls/hr IVPB Q8H-IV [facility] Last Admin: 09/19/16 11:18 Dose: 100 mls/hr Pantoprazole Sodium (Protonix -) 40 mg PO DAILY [facility] Last Admin: 09/19/16 10:12 Dose: 40 mg a/p epiglotitis- improving- ?viral, ?bacterial day #4 antibiotics-much improved can switch to po antibiotics clindamycin 300 tid and ceftin 500 bid for 7 days bacid 1 po bid for 2 weeks ent f/u leukocytosis secondary to steroids elevated INR-f/u per PMD Problem List - Problems (1) Epiglottitis Code(s): J05.10 - ACUTE EPIGLOTTITIS WITHOUT OBSTRUCTION
--- NOTE | 2016-09-19 15:33 | DS ---
Physical Examination Vital Signs: Vital Signs Temperature 98.1 F 09/19/16 14:08 Pulse Rate 77 09/19/16 14:08 Respiratory Rate 20 09/19/16 14:08 Blood Pressure 138/85 09/19/16 14:08 O2 Sat by Pulse Oximetry (%) 99 09/19/16 09:00 Labs: CBC, BMP 09/19/16 06:15 09/19/16 06:15 Discharge Summary Reason For Visit: EPIGLOTTITIS Current Active Problems Epiglottitis (Acute) HTN (hypertension) (Acute) Intractable back pain (Acute) Intractable low back pain (Acute) Nausea (Acute) Protein C deficiency (Acute) Hospital Course: (1) Epiglottitis Code(s): J05.10 - ACUTE EPIGLOTTITIS WITHOUT OBSTRUCTION (2) HTN (hypertension) Code(s): I10 - ESSENTIAL (PRIMARY) HYPERTENSION Ms Lambert is a very pleasant 46 year old female who comes in with epiglottitis. She was admitted to the hospital. She was seen by both ID and ENT. She was started on IV rocephin and clindamycin and also solumedrol. She improved significantly and is now swallowing without difficulty. Currently she is stable for discharge on home antibiotics. Her swelling has resolved and does not need further antibiotics. Her INR was elevated and her coumadin was held. She should present to the office tomorrow for an INR check. 35 minutes spent in preparation of this discharge Condition: Good - Instructions Diet, Activity, Other Instructions: resume previous diet and activity. Present to the office tomorrow for INR check. Referrals: Hermlio Alarcon MD [Primary Care Provider] - Disposition: HOME - Home Medications Comprehensive Discharge Medication List: Ambulatory Orders RX: Amlodipine Besylate [Norvasc -] 5 mg PO DAILY 03/23/14 RX: Warfarin Sodium [Coumadin] 7.5 mg PO ASDIR 03/23/14 RX: Warfarin Sodium [Coumadin] 10 mg PO ASDIR 03/23/14 RX: Non-Formulary 0 mg PO ASDIR 09/16/16 Cefuroxime Axetil [Ceftin -] 500 mg PO Q12H #14 tablet 09/19/16 Lactobacillus Acidophilus [Bacid -] 1 each PO DAILY #14 capsule 09/19/16 RX: Clindamycin [Cleocin -] 300 mg PO TID #21 capsule 09/19/16
== END 2016-09-19 17:35 | disposition home or self-care (01) | DRG 153 ==
LOC: JER 13:26 → INTOOBSV 18:50 → JERBED 18:50 → J5S 09-17 14:55 → OBSVTOIN 09-18 17:09
PROVIDERS: ADMIT Internal Medicine; ATTEND Internal Medicine
DX: J05.10 Acute epiglottitis without obstruction (principal); D68.59 Other primary thrombophilia; I10 Essential (primary) hypertension; M54.5 Low back pain; R11.0 Nausea; D72.829 Elevated white blood cell count, unspecified; K21.9 Gastro-esophageal reflux disease without esophagitis
CPT/HCPCS: 36415; 70360-TC; 71020-TC; 80048; 80053; 83735; 84100; 84703; 85025; 85610; 87040; 93005; 93010; 99285-25; G0378

== ENCOUNTER 2018-01-08 03:04 | Inpatient (IN) | payer BC ==
[2018-01-08 04:21] VITALS: BMI 33.3
--- NOTE | 2018-01-08 04:29 | PDOC ---
History of Present Illness - General Stated Complaint: SIDE PAIN Time Seen by Provider: 01/08/18 04:27 - History of Present Illness Initial Comments: 47yo F with PMH of CAD, HTN, PE presenting with suprapubic pain. Patient was admitted to this hospital for pyelonephritis, UTI, supratheraputic INR, received a right ureteroscopy on Friday, and was discharged yesterday. At 2am this morning, she was sleeping when she suddenly felt a "stabbing" pain in the right suprapubic area, radiating towards the RUQ. Patient also reports dysuria, frequency, hematuria, straining on urination, and leaking of urine. This pain is the same as when she first presented at her previous visit, but with greater severity. Endorses shortness of breath which she attributes to being in pain and also chills, but no fever or chest pain. Past History - Past Medical History Allergies/Adverse Reactions: Allergies Allergy/AdvReac Type Severity Reaction Status Date / Time amoxicillin [From Augmentin] AdvReac Mild Itching Verified 01/08/18 04:21 clavulanic acid AdvReac Itching Verified 01/08/18 04:21 [From Augmentin] Home Medications: Ambulatory Orders Warfarin Sodium [Coumadin] 7.5 mg PO ASDIR 03/23/14 Atorvastatin Ca [Lipitor] 20 mg PO HS 01/01/18 Cholecalciferol (Vitamin D3) [Vitamin D -] 500 unit PO DAILY 01/01/18 Metoprolol Succinate [Toprol XL -] 50 mg PO DAILY 01/01/18 Enoxaparin [Lovenox -] 90 mg SQ BID 5 Days #10 disp.syrin 01/07/18 Warfarin Sodium [Coumadin] 10 mg PO ASDIR 01/08/18 Anemia: No Cardiac Disorders: (cad) COPD: No DVT: No GI Disorders: Yes (ACID REFLUX, GERD) Disorders: Yes (FREQUENT UTI'S,has a bladder stimulator) HTN: Yes - Surgical History Abdominal Surgery: Yes ( ) - Immunization History Immunization Up to Date: Yes - Suicide/Smoking/Psychosocial Hx Smoking History: Never smoked Have you smoked in the past 12 months: No Hx Alcohol Use: No Drug/Substance Use Hx: No Substance Use Type: None Hx Substance Use Treatment: No Review of Systems - Review of Systems Comments:: Constitutional: +chills, no fever Cardiovascular: no chest pain, no palpitations Respiratory: no cough, no shortness of breath Gastrointestinal: +abdominal pain, +nausea, +diarrhea Genitourinary: +dysuria, +frequency Musculoskeletal: no myalgia, no arthralgia Skin: no rash, no itching Neurologic: +weakness, no headache, no dizziness *Physical Exam - Vital Signs Last Vital Signs Temp Pulse Resp BP Pulse Ox 99.9 F H 88 22 153/119 100 01/08/18 03:05 01/08/18 03:05 01/08/18 03:05 01/08/18 03:05 01/08/18 03:05 - Physical Exam Comments: General: Awake, alert, and fully oriented Head: No signs of trauma Eyes: EOMI, sclera anicteric ENT: Moist mucus membranes Neck: Normal ROM, supple Lungs: Lungs clear, Normal breath sounds Cardio: Regular rhythm, S1 and S2 present Abdomen: Tender to palpation in the suprapubic region, especially on the right; right CVA tenderness; soft, normal bowel sounds Extremities: Normal range of motion, distal pulses present SKIN: Warm, Dry, normal turgor, no rashes or lesions noted Neurologic: Cranial nerves II through XII grossly intact. Normal speech ED Treatment Course - LABORATORY CBC & Chemistry Diagram: 01/08/18 05:06 01/08/18 05:40 Medical Decision Making - Medical Decision Making 47yo F with recent admission for pyelonephritis and ureteroscopy on Friday presenting with suprapubic pain. EKG rate 78, QTc 433, T wave abnormalities also present on 01/01/18 EKG. 01/08/18 05:27 WBC elevated 11.8 (up from 8.4 on 01/07/18) Chemistry hemolyzed. Re-ordered CMP, Cardiac Profile 01/08/18 05:39 *DC/Admit/Observation/Transfer Diagnosis at time of Disposition: Pyelonephritis - Discharge Dispostion Condition at time of disposition: Stable - Referrals - Patient Instructions - Post Discharge Activity
[2018-01-08] MEDS ORDERED: morphine CARPU-JECT 4 MG/1 ML DISP.SYRIN IVPUSH ONE (04:52)
[2018-01-08] MEDS ORDERED: ONDANSETRON 4 MG/2 ML VIAL IVPUSH ONE (04:52)
[2018-01-08] MEDS ORDERED: KETOROLAC TROMETHAMINE 30 MG/1 ML VIAL IVPUSH ONE (04:52)
--- NOTE | 2018-01-08 04:57 | PDOC ---
Attending Attestation - HPI HPI: 01/08/18 05:00 The patient is a 47 year old female, with a significant past medical history pyelonephritis, UTI, s/p ureteroscopy (01/06/18), who presents to the emergency department with sharp suprapubic pain since 2AM this morning. She reports the pain as stabbing in nature. She states the pain is so severe she feels SOB. She also reports associated diarrhea and chills for about one week. The patient denies chest pain, headache and dizziness. The patient denies fever , nausea, vomit, and constipation. The patient denies dysuria, frequency, urgency and hematuria. Allergies: amoxicillin, clavulanic acid - Medical Decision Making 01/08/18 05:00 Documentation prepared by Ella Bui, acting as medical technician assistant for Brian Zuluaga DO. <Ella Bui - Last Filed: 01/08/18 04:59> - Resident Resident Name: Adelia Posada - ED Attending Attestation I have performed the following: I have examined & evaluated the patient, The case was reviewed & discussed with the resident, I agree w/resident's findings & plan, Exceptions are as noted - Physicial Exam PE: 01/13/18 19:23 *Physical Exam General Appearance: Yes: Appropriately Dressed. No: Apparent Distress, Intoxicated HEENT: positive: EOMI, KYUNG, Normal ENT Inspection, Normal Voice, TMs Normal, Pharynx Normal. negative: Pale Conjunctivae, Photophobia, Scleral Icterus (R), Scleral Icterus (L) Neck: positive: Trachea midline, Normal Thyroid, Supple. negative: Tender, Rigid, Carotid bruit, Stridor, Lymphadenopathy (R), Lymphadenopathy (L), Thyromegaly Respiratory/Chest: positive: Lungs Clear, Normal Breath Sounds. negative: Chest Tender, Respiratory Distress, Accessory Muscle Use, Labored Respiration, RES, Crackles, Rales, Rhonchi, Stridor, Wheezing, Dullness Cardiovascular: positive: Regular Rhythm, Regular Rate, S1, S2. negative: Edema , JVD, Murmur, Bradycardia, Tachycardia Vascular Pulses: Dorsalis-Pedis (R): 2+, Doralis-Pedis (L): 2+ Gastrointestinal/Abdominal: positive: Normal Bowel Sounds, Flat, Soft. negative : Tender, Organomegaly, Pulsatile Mass, Increased Bowel Sounds, Decreased BS, Distended, Guarding, Rebound, Hernia, Hepatomegaly, Spleenomegaly Lymphatic: negative: Adenopathy, Tenderness Musculoskeletal: positive: Normal Inspection. negative: CVA Tenderness, Decreased Range of Motion Extremity: positive: Normal Capillary Refill, Normal Inspection, Normal Range of Motion, Pelvis Stable. negative: Tender, Pedal Edema, Swelling, Erythema Integumentary: positive: Normal Color, Dry, Warm. 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 negative: EOM Palsy, Facial Droop, Sensory Deficit - Medical Decision Making 01/13/18 19:23 Pt was admitted for further evaluation and care <Brian Zuluaga - Last Filed: 01/13/18 19:23>
[2018-01-08] MEDS ORDERED: morphine SULFATE 4 MG/ML VIAL ONE (05:04)
[2018-01-08] MEDS ORDERED: ONDANSETRON 4 MG/2 ML VIAL ONE (05:05)
[2018-01-08] MEDS ORDERED: KETOROLAC TROMETHAMINE 30 MG/1 ML VIAL ONE (05:05)
[2018-01-08 05:23] LABS: BASO % 0.4 % (0-2.0); EOS % 1.7 % (0-4.5); HEMATOCRIT 31.9 % (32.4-45.2); HEMOGLOBIN 10.5 GM/dL (10.7-15.3); LYMPH % 19.9 % (8-40); MCH 26.7 pg (25.7-33.7); MCHC 32.8 g/dl (32.0-36.0); MEAN CELL VOLUME 81.3 fl (80-96); MEAN PLT VOLUME 8.4 fl (7.5-11.1); MONO % 9.8 % (3.8-10.2); NEUT % 68.2 % (42.8-82.8); PLATELET COUNT 412 K/MM3 (134-434); RBC 3.92 M/mm3 (3.60-5.2); RDW 14.6 % (11.6-15.6); URINE APPEARANCE TURBID; WHITE BLOOD COUNT 11.8 K/mm3 (4.0-10.0)
[2018-01-08 05:39] LABS: INR 1.3 (0.83-1.09); PROTHROMBIN TIME (PATIENT) 14.7 SEC (9.7-13.0)
[2018-01-08 06:02] LABS: URINE COLOR RED
[2018-01-08 06:37] LABS: CHLORIDE 113 mmol/L (98-107); SODIUM 148 mmol/L (136-145)
[2018-01-08 06:51] LABS: ALBUMIN 3.7 g/dl (3.4-5.0); ALK PHOS 112 U/L (45-117); ANION GAP 12 (8-16); BILIRUBIN,TOTAL 0.4 mg/dL (0.2-1.0); BLOOD UREA NITROGEN 12 mg/dL (7-18); CALCIUM 9.1 mg/dL (8.5-10.1); CO2 23 mmol/L (21-32); CREATININE 1.2 mg/dL (0.55-1.02); GLUCOSE,RANDOM 125 mg/dL (74-106); SGOT/AST 19 U/L (15-37); SGPT/ALT 33 U/L (12-78); TOT PROT 6.6 g/dl (6.4-8.2)
[2018-01-08] MEDS ORDERED: CEFTRIAXONE 1,000 MG in DEXTROSE 5%-WATER - 50 ML IVPB ONE (07:06)
[2018-01-08] MEDS ORDERED: CEFTRIAXONE 1 GM/50 ML BAG ONE (07:51)
--- NOTE | 2018-01-08 08:16 | PDOC ---
*Physical Exam - Vital Signs Last Vital Signs Temp Pulse Resp BP Pulse Ox 99.1 F 72 17 118/61 98 01/08/18 06:57 01/08/18 06:57 01/08/18 06:57 01/08/18 06:57 01/08/18 06:57 - Physical Exam Comments: 01/08/18 08:14 GENERAL: Awake, alert, and fully oriented, in no acute distress HEAD: No signs of trauma, normocephalic, atraumatic EYES: PERRLA, EOMI, sclera anicteric, conjunctiva clear ENT: Auricles normal inspection, hearing grossly normal, nares patent, oropharynx clear without exudates. Moist mucosa EXTREMITIES: Normal inspection, Normal range of motion, no edema. No clubbing or cyanosis. NEUROLOGICAL: Cranial nerves II through XII grossly intact. Normal speech, normal gait, no focal sensorimotor deficits SKIN: Warm, Dry, normal turgor, no rashes or lesions noted. ED Treatment Course - LABORATORY CBC & Chemistry Diagram: 01/08/18 05:06 01/08/18 05:40 - ADDITIONAL ORDERS Additional order review: Laboratory Results 01/08/18 01/08/18 01/08/18 05:40 05:06 05:06 PT with INR INR Sodium 148 H Cancelled Potassium 4.0 Cancelled Chloride 113 H Cancelled Carbon Dioxide 23 Cancelled Anion Gap 12 Cancelled BUN 12 Cancelled Creatinine 1.2 H Cancelled Creat Clearance w eGFR 47.75 Cancelled Random Glucose 125 H Cancelled Calcium 9.1 Cancelled Total Bilirubin 0.4 Cancelled AST 19 Cancelled ALT 33 Cancelled Alkaline Phosphatase 112 Cancelled Creatine Kinase 63 Cancelled Troponin I < 0.02 Cancelled Total Protein 6.6 Cancelled Albumin 3.7 Cancelled Urine Color Red Urine Appearance Turbid Urine pH Ur Specific [place] Urine Protein Urine Glucose (UA) Urine Ketones Urine Blood Urine Nitrite Urine Bilirubin Urine Urobilinogen Ur Leukocyte Esterase 01/08/18 05:06 PT with INR 14.70 H INR 1.30 H Sodium Potassium Chloride Carbon Dioxide Anion Gap BUN Creatinine Creat Clearance w eGFR Random Glucose Calcium Total Bilirubin AST ALT Alkaline Phosphatase Creatine Kinase Troponin I Total Protein Albumin Urine Color Urine Appearance Urine pH Ur Specific [place] Urine Protein Urine Glucose (UA) Urine Ketones Urine Blood Urine Nitrite Urine Bilirubin Urine Urobilinogen Ur Leukocyte Esterase 01/08/18 05:06 RBC 3.92 MCV 81.3 MCHC 32.8 RDW 14.6 MPV 8.4 Neutrophils % 68.2 D Lymphocytes % 19.9 D Monocytes % 9.8 Eosinophils % 1.7 Basophils % 0.4 - Medications Given in the ED: ED Medications Discontinued Medications Generic Name Dose Route Start Last Admin Trade Name Christopher PRN Reason Stop Dose Admin Ceftriaxone Sodium 1,000 mg/ 50 mls @ 100 mls/hr 01/08/18 07:06 01/08/18 07: 50 Dextrose IVPB 01/08/18 07:35 100 mls/hr ONCE ONE Administration Ketorolac Tromethamine 30 mg 01/08/18 04:52 01/08/18 05:08 Toradol Injection - IVPUSH 01/08/18 04:53 30 mg ONCE ONE Administration Morphine Sulfate 4 mg 01/08/18 04:52 01/08/18 05:10 Morphine Injection - IVPUSH 01/08/18 04:53 4 mg ONCE ONE Administration Ondansetron HCl 4 mg 01/08/18 04:52 01/08/18 05:08 Zofran Injection IVPUSH 01/08/18 04:53 4 mg ONCE ONE Administration Medical Decision Making - Medical Decision Making 01/08/18 08:[address] Posada. Patient is 47F with history of PE, recent admission for pyelo and hydronephrosis here today with dysuria. +R sided CVA. UA shows UTI. Pending admission. *DC/Admit/Observation/Transfer Diagnosis at time of Disposition: Pyelonephritis - Discharge Dispostion Condition at time of disposition: Stable Decision to Admit order: Yes Decision to Admit order Date/Time: Decision to Admit Order Category Date Time Status Decision to Admit to Hospital Routine Admission 01/08/18 08:11 Ordered - Referrals Referrals: Hermilo Alarcon MD [Primary Care Provider] - - Patient Instructions - Post Discharge Activity
--- NOTE | 2018-01-08 09:58 | HP ---
Admitting History and Physical - Primary Care Physician PCP: Hermilo Alarcon - Admission Chief Complaint: chills, hematuria History of Present Illness: is a 47 year old female who was discharged 01/07/18 s/p right ureteroscopy with stent placement. Last admission, she had right hydronephrosis , pyelonephritis, received iv antibx and urine culture neg at the time. Had right ureteroscopy with stent by and was discharged home. INR was subtherapeutic therefore a lovenox to coumadin bridge was in place. Pt returns today with complaints of worsened sharp suprapubic and RLQ pain, worse with urination. Pt also reports chills, dysuria, nausea, urinary frequency and dark-blood urine. She also reports feeling warm last night, did not check temp. Otherwise, denies any rash, vomiting, chest pain, sob, lightheadedness or changes in medications. History Source: Patient Limitations to Obtaining History: No Limitations - Past Medical History Cardiovascular: Yes: CAD, Deep Vein Thrombosis, HTN Pulmonary: Yes: Pulmonary Embolus ...LMP: 04/23/15 (perimenopausal ) ...: No Heme/Onc: Yes: Hypercoaguable State, Other (Protein C deficiency on coumadin) Musculoskeletal: Yes: Other (Acute back pain) - Past Surgical History Past Surgical History: Yes: , Tubal Ligation Additional Past Surgical History: Ureteroscopy w/ stent- 12/24 - Smoking History Smoking history: Never smoked Have you smoked in the past 12 months: No - Alcohol/Substance Use Hx Alcohol Use: No History of Substance Use: reports: None - Social History ADL: Independent Home Medications - Allergies Allergies/Adverse Reactions: Allergies Allergy/AdvReac Type Severity Reaction Status Date / Time amoxicillin [From Augmentin] AdvReac Mild Itching Verified 01/08/18 04:21 clavulanic acid AdvReac Itching Verified 01/08/18 04:21 [From Augmentin] - Home Medications Home Medications: Ambulatory Orders Warfarin Sodium [Coumadin] 7.5 mg PO ASDIR 03/23/14 Atorvastatin Ca [Lipitor] 20 mg PO HS 01/01/18 Cholecalciferol (Vitamin D3) [Vitamin D -] 500 unit PO DAILY 01/01/18 Metoprolol Succinate [Toprol XL -] 50 mg PO DAILY 01/01/18 Enoxaparin [Lovenox -] 90 mg SQ BID 5 Days #10 disp.syrin 01/07/18 Warfarin Sodium [Coumadin] 10 mg PO ASDIR 01/08/18 Family Disease History - Family Disease History Family Disease History: Diabetes: Mother (stroke), Heart Disease: Father (HTN), Mother Review of Systems Findings/Remarks: as per hpi Physical Examination Vital Signs: Vital Signs Temperature 99.1 F 01/08/18 06:57 Pulse Rate 72 01/08/18 06:57 Respiratory Rate 17 01/08/18 06:57 Blood Pressure 118/61 01/08/18 06:57 O2 Sat by Pulse Oximetry (%) 98 01/08/18 06:57 Constitutional: Yes: Well Nourished, No Distress, Calm Cardiovascular: Yes: WNL, Regular Rate and Rhythm. No: Gallop, Murmur Respiratory: Yes: WNL, Regular. No: Accessory Muscle Use, Rhonchi, SOB, Tachypnea, Wheezes Gastrointestinal: Yes: Normal Bowel Sounds, Soft, Abdomen, Obese, Tenderness ( RLQ). No: Distention Renal/: Yes: CVA Tenderness - Right, Hematuria. No: CVA Tenderness - Left Musculoskeletal: Yes: WNL Extremities: Yes: WNL Edema: No Neurological: Yes: WNL, Alert, Oriented Psychiatric: Yes: WNL, Alert, Oriented Labs: CBC, BMP 01/08/18 05:06 01/08/18 05:40 Imaging - Results Cat Scan: Report Reviewed Problem List - Problems (1) Pyelonephritis Assessment/Plan: CT- enlarged right kidney with thickening of renal pelvis wall, improvement of perinephric stranding s/p right ureteroscopy/stent on 01/06 low grade temp, hematuria, dysuria/urinary frequency,wbc11.8, +right cva tenderness urine culture pending ceftriaxone day 1 IVF urology consulted Code(s): N12 - TUBULO-INTERSTITIAL NEPHRITIS, NOT SPCF ACUTE OR CHRONIC (2) Hematuria Assessment/Plan: as above hold AC until cleared by hematology Code(s): R31.9 - HEMATURIA, UNSPECIFIED Qualifiers: Hematuria type: gross Qualified Code(s): R31.0 - Gross hematuria (3) Hydronephrosis, right Assessment/Plan: as above Code(s): N13.30 - UNSPECIFIED HYDRONEPHROSIS (4) COMPA (acute kidney injury) Assessment/Plan: mild elevation suspect secondary to pyelo, dehydration IVF monitor Code(s): N17.9 - ACUTE KIDNEY FAILURE, UNSPECIFIED (5) Nausea Assessment/Plan: secondary to pyelo Code(s): R11.0 - NAUSEA (6) Abdominal pain Assessment/Plan: pt reports worsening suprapubic/rlq pain secondary to pyelonephritis treat underlying and monitor tylenol prn Code(s): R10.9 - UNSPECIFIED ABDOMINAL PAIN Qualifiers: Abdominal location: right lower quadrant Qualified Code(s): R10.31 - Right lower quadrant pain (7) Subtherapeutic international normalized ratio (INR) Assessment/Plan: INR 1.3 ok to resume AC per urology lovenox to coumadin bridge- will hold until pt evaluated by hematology considering risk for embolic events, hematology consulted for further guidance Code(s): R79.1 - ABNORMAL COAGULATION PROFILE (8) Protein C deficiency Assessment/Plan: hx of dvt/pe on coumadin outpt lovenox to coumadin bridge on hold Code(s): D68.59 - OTHER PRIMARY THROMBOPHILIA (9) CAD (coronary artery disease) Assessment/Plan: no acute acs borderline stress test outpt, plan for cta by cardiology continue statin/ ac Code(s): I25.10 - ATHSCL HEART DISEASE OF [place] CORONARY ARTERY W/O ANG PCTRS Qualifiers: Coronary Disease-Associated Artery/Lesion type: [place] artery [place] vs. transplanted heart: [place] heart Associated angina: without angina Qualified Code(s): I25.10 - Atherosclerotic heart disease of [place] coronary artery without angina pectoris (10) HTN (hypertension) Assessment/Plan: controlled continue metoprolol Code(s): I10 - ESSENTIAL (PRIMARY) HYPERTENSION Qualifiers: Hypertension type: essential hypertension Qualified Code(s): I10 - Essential (primary) hypertension
[2018-01-08] MEDS ORDERED: ENOXAPARIN NA (PORCINE) 40 MG/0.4 ML DISP.SYRIN SQ SCH (10:00)
[2018-01-08] MEDS ORDERED: SODIUM CHLORIDE 1,000 ML IV STA (10:01)
[2018-01-08] MEDS ORDERED: ONDANSETRON 4 MG/2 ML VIAL IVPUSH PRN (10:16)
--- NOTE | 2018-01-08 12:47 | EKG ---
Test Reason : Blood Pressure : / mmHG Vent. Rate : 078 BPM Atrial Rate : 078 BPM P-R Int : 144 ms QRS Dur : 068 ms QT Int : 380 ms P-R-T Axes : 072 -13 -37 degrees QTc Int : 433 ms POOR DATA QUALITY, INTERPRETATION MAY BE ADVERSELY AFFECTED NORMAL SINUS RHYTHM ABNORMAL ECG WHEN COMPARED WITH ECG OF 01-JAN-2018 10:20, NO SIGNIFICANT CHANGE WAS FOUND Confirmed by INDU HOWARD, DAWSON ([id number]) on 01/08/2018 12:46:48 PM Referred By: Confirmed By:DAWSON GRIGGS MD
--- NOTE | 2018-01-08 12:56 | CONSULT ---
Consultation: REQUESTING PROVIDER: CONSULT REQUEST: We have been asked to medically evaluate this patient for ( specify). HISTORY OF PRESENT ILLNESS: REVIEW OF SYSTEMS: CONSTITUTIONAL: Absent: fever, chills, diaphoresis, generalized weakness, malaise, loss of appetite, weight change HEENT: Absent: rhinorrhea, nasal congestion, throat pain, throat swelling, difficulty swallowing, mouth swelling, ear pain, eye pain, visual changes CARDIOVASCULAR: Absent: chest pain, syncope, palpitations, irregular heart rate, lightheadedness , peripheral edema RESPIRATORY: Absent: cough, shortness of breath, dyspnea with exertion, orthopnea, wheezing, stridor, hemoptysis GASTROINTESTINAL: Absent: abdominal pain, abdominal distension, nausea, vomiting, diarrhea, constipation, melena, hematochezia GENITOURINARY: Absent: dysuria, frequency, urgency, hesitancy, hematuria, flank pain, genital pain MUSCULOSKELETAL: Absent: myalgia, arthralgia, joint swelling, back pain, neck pain SKIN: Absent: rash, itching, pallor HEMATOLOGIC/IMMUNOLOGIC: Absent: easy bleeding, easy bruising, lymphadenopathy, frequent infections ENDOCRINE: Absent: unexplained weight gain, unexplained weight loss, heat intolerance, cold intolerance NEUROLOGIC: Absent: headache, focal weakness or paresthesias, dizziness, unsteady gait, seizure, mental status changes, bladder or bowel incontinence PSYCHIATRIC: Absent: anxiety, depression, suicidal or homicidal ideation, hallucinations. PHYSICAL EXAMINATION Vital Signs - 24 hr 01/08/18 01/08/18 01/08/18 10:35 12:10 12:11 Temperature 98.4 F 97.6 F Pulse Rate 83 Pulse Rate [ 78 Left] Respiratory 16 20 Rate Blood Pressure 136/76 Blood Pressure 117/62 [Left Arm] O2 Sat by Pulse 100 99 Oximetry (%) 01/08/18 01/08/18 01/08/18 14:28 21:00 22:54 Temperature 98.0 F 98.8 F Pulse Rate 74 76 Pulse Rate [ Left] Respiratory 20 Rate Blood Pressure 117/54 122/58 Blood Pressure [Left Arm] O2 Sat by Pulse 100 Oximetry (%) 01/09/18 06:00 Temperature 98.0 F Pulse Rate 62 Pulse Rate [ Left] Respiratory 19 Rate Blood Pressure 112/70 Blood Pressure [Left Arm] O2 Sat by Pulse Oximetry (%) GENERAL: Awake, alert, and fully oriented, in no acute distress. HEAD: Normal with no signs of trauma. EYES: Pupils equal, round and reactive to light, extraocular movements intact, sclera anicteric, conjunctiva clear. No lid lag. EARS, NOSE, THROAT: Ears normal, nares patent, oropharynx clear without exudates. Moist mucous membranes. NECK: Normal range of motion, supple without lymphadenopathy, JVD, or masses. LUNGS: Breath sounds equal, clear to auscultation bilaterally. No wheezes, and no crackles. No accessory muscle use. HEART: Regular rate and rhythm, normal S1 and S2 without murmur, rub or gallop. ABDOMEN: Soft, nontender, not distended, normoactive bowel sounds, no guarding, no rebound, no masses. No hepatomegaly or splenomegaly. MUSCULOSKELETAL: Normal range of motion at all joints. No bony deformities or tenderness. No CVA tenderness. UPPER EXTREMITIES: 2+ pulses, warm, well-perfused. No cyanosis. No clubbing. Cap refill <2 seconds. No peripheral edema. LOWER EXTREMITIES: 2+ pulses, warm, well-perfused. No calf tenderness. No peripheral edema. NEUROLOGICAL: Cranial nerves II-XII intact. Normal speech. Normal gait. PSYCHIATRIC: Cooperative. Good eye contact. Appropriate mood and affect. SKIN: Warm, dry, normal turgor, no rashes or lesions noted. Laboratory Results - last 24 hr 01/08/18 01/08/18 01/08/18 10:41 10:41 20:30 Lactic Acid 0.7 C-Reactive Protein 1.2 H Urine Color Red Urine Appearance Cloudy Urine pH 6.0 Ur Specific [place] 1.010 Urine Protein 2+ H Urine Glucose (UA) 1+ H Urine Ketones Negative Urine Blood 2+ H Urine Nitrite Negative Urine Bilirubin Negative Urine Urobilinogen Negative Ur Leukocyte Esterase 1+ H Urine WBC (Auto) 0-3 Urine RBC (Auto) >100 Ur Epithelial Cells Rare Urine Bacteria Rare Active Medications Generic Name Dose Route Start Last Admin Trade Name Freq PRN Reason Stop Dose Admin Atorvastatin Calcium 20 mg 01/08/18 22:00 01/08/18 21:37 Lipitor - PO 20 mg HS PITO Administration Cholecalciferol 500 unit 01/09/18 10:00 Vitamin D3 - PO DAILY [facility] Enoxaparin Sodium 40 mg 01/08/18 18:00 08/02/18 17:23 Lovenox - SQ 40 mg DAILY PITO Administration Dextrose/Sodium Chloride 1,000 mls @ 125 mls/hr 01/08/18 10:15 01/09/18 05:56 D5-1/2ns - IV 125 mls/hr ASDIR PITO Administration Ceftriaxone Sodium 1 gm/ 100 mls @ 200 mls/hr 01/09/18 10:00 Dextrose IVPB DAILY PITO Protocol Metoprolol Succinate 50 mg 01/08/18 11:00 01/08/18 12:25 Toprol Xl - PO 50 mg DAILY PITO Administration Ondansetron HCl 4 mg 01/08/18 10:16 Zofran Injection IVPUSH Q6H PRN NAUSEA AND/OR VOMITING ASSESSMENT A ND PLAN 47 yy/o patient with h/o proten C deficiency diagnosed 8yrs. ago, at the time of RUE DVT --unsure if it was falsely diagnosed during acute thrombotic episode or while on coumadin. Also witremote h/o PE Has h/o recurrent UTIs, bladder stimulator, was off coumadin since 01/01, s/p rt. ureteroscopy and stent placement 01/07/18 comes in with hematuria, rlq abdominal pain. she was dischargef on 90mg bid lovenox and coumadin last dose of lovenox was 01/09 evening as she is having active hematuria will hold full dose anticoagulation will give prophylactic dosing will repeat thrombophilia w/u except protein c/s/ATIII as patient is on coumadin will bridge with heparin drip or lovenox to coumadin based on clinical course, bleeding Given h/o protein C deficiency bridging would be important including overlap for 24hrds. Urology follow up discussed with patient <Galina Baez - Last Filed: 01/09/18 07:52> Consultation: REQUESTING PROVIDER: CONSULT REQUEST: We have been asked to medically evaluate this patient for ( hematology-oncology). HISTORY OF PRESENT ILLNESS: 47 year old female who was discharged on 01/07/18 s/ p right ureteroscopy with stent placement for right hydronephrosis, pyelonephritis came back to the hospital on 01/08/18 in midnight because of pain in suprapubic area, RLQ and lumber area, 10/10 in intensity, stabbing type, non radiating, constant. Patient also noticed increase in frequency of micturation , burning micturation, and also noticed blood in urine. Patient also reports feeling of incomplete emptying of urinary bladder. Patient also reports chills but didn't check her temp. Patient also reports nausea but no vomiting. Denies change in weight, appetite, constipation, diarrhoea. PMH: frequent uti, CAD, HTN, HLD, PE, DVT in RUE (2009), Neurogenic bladder, ?? Protein C deficiency ( diagnosed in 2009 ) PSH: c section, tubal ligation, bladder stimulator implanted 2 years ago, Uretroscopy 01/06/18, multiple cystoscopies. 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 Allergies Allergy/AdvReac Type Severity Reaction Status Date / Time amoxicillin [From Augmentin] AdvReac Mild Itching Verified 01/08/18 04:21 clavulanic acid AdvReac Itching Verified 01/08/18 04:21 [From Augmentin] Home Medications Medication Instructions Recorded Warfarin Sodium [Coumadin] 7.5 mg PO ASDIR 03/23/14 Atorvastatin Ca [Lipitor] 20 mg PO HS 01/01/18 Cholecalciferol (Vitamin D3) 500 unit PO DAILY 01/01/18 [Vitamin D -] Metoprolol Succinate [Toprol XL -] 50 mg PO DAILY 01/01/18 Enoxaparin [Lovenox -] 90 mg SQ BID 5 Days #10 disp.syrin 01/07/18 Warfarin Sodium [Coumadin] 10 mg PO ASDIR 01/08/18 REVIEW OF SYSTEMS: CONSTITUTIONAL: Absent: fever,, diaphoresis, generalized weakness, malaise, loss of appetite, weight change HEENT: Absent: rhinorrhea, nasal congestion, throat pain, throat swelling, difficulty swallowing, mouth swelling, ear pain, eye pain, visual changes CARDIOVASCULAR: Absent: chest pain, syncope, palpitations, irregular heart rate, lightheadedness , peripheral edema RESPIRATORY: Absent: cough, shortness of breath, dyspnea with exertion, orthopnea, wheezing, stridor, hemoptysis GASTROINTESTINAL: Absent: abdominal pain, abdominal distension, nausea, vomiting, diarrhea, constipation, melena, hematochezia GENITOURINARY: as above MUSCULOSKELETAL: Absent: myalgia, arthralgia, joint swelling, back pain, neck pain SKIN: Absent: rash, itching, pallor HEMATOLOGIC/IMMUNOLOGIC: Absent: easy bleeding, easy bruising, lymphadenopathy, ENDOCRINE: Absent: unexplained weight gain, unexplained weight loss, NEUROLOGIC: Absent: headache, focal weakness or paresthesias, dizziness, unsteady gait, seizure, PSYCHIATRIC: Absent: anxiety, depression, . PHYSICAL EXAMINATION 01/08/18 12:11 Temperature 97.6 F Pulse Rate 83 Pulse Rate [ Left] Respiratory 20 Rate Blood Pressure 136/76 Blood Pressure [Left Arm] O2 Sat by Pulse Oximetry (%) GENERAL: Awake, alert, and fully oriented, in no acute distress. HEAD: Normal with no signs of trauma. EYES: conjunctiva clear. No lid lag. EARS, NOSE, THROAT: Dry mucous membranes. NECK: Normal range of motion, supple without lymphadenopathy, LUNGS: Breath sounds equal, clear to auscultation bilaterally. No wheezes, and no crackles. No accessory muscle use. Axilla : no lymphnodes palpable Breast: No lump palpable. HEART: Regular rate and rhythm, normal S1 and S2 ABDOMEN: Soft, tender to touch in RLQ, R lumbar area, not distended, normoactive bowel sounds, no guarding, MUSCULOSKELETAL: Normal range of motion at all joints. No bony deformities or tenderness. No CVA tenderness. UPPER EXTREMITIES: 2+ pulses, warm, well-perfused. No cyanosis. No clubbing. LOWER EXTREMITIES: 2+ pulses, warm, well-perfused. No calf tenderness. No peripheral edema. NEUROLOGICAL: Cranial nerves II-XII intact. Normal speech. PSYCHIATRIC: Cooperative. Good eye contact. SKIN: Warm, dry, Laboratory Results - last 24 hr 01/08/18 01/08/18 01/08/18 05:06 05:06 05:06 WBC 11.8 H RBC 3.92 Hgb 10.5 L Hct 31.9 L MCV 81.3 MCH 26.7 MCHC 32.8 RDW 14.6 Plt Count 412 D MPV 8.4 Absolute Neuts (auto) 8.0 Neutrophils % 68.2 D Lymphocytes % 19.9 D Monocytes % 9.8 Eosinophils % 1.7 Basophils % 0.4 Nucleated RBC % 0 PT with INR 14.70 H INR 1.30 H Sodium Potassium Chloride Carbon Dioxide Anion Gap BUN Creatinine Creat Clearance w eGFR Random Glucose Lactic Acid Calcium Total Bilirubin AST ALT Alkaline Phosphatase Creatine Kinase Troponin I C-Reactive Protein Total Protein Albumin Urine Color Red Urine Appearance Turbid Urine pH Ur Specific [place] Urine Protein Urine Glucose (UA) Urine Ketones Urine Blood Urine Nitrite Urine Bilirubin Urine Urobilinogen Ur Leukocyte Esterase Active Medications Generic Name Dose Route Start Last Admin Trade Name Freq PRN Reason Stop Dose Admin Acetaminophen 1,000 mg 01/08/18 10:11 Ofirmev Injection - IVPB Q6H PRN PAIN LEVEL 6-10 Atorvastatin Calcium 20 mg 01/08/18 22:00 Lipitor - PO HS PITO Cholecalciferol 500 unit 01/09/18 10:00 Vitamin D3 - PO DAILY [facility] Dextrose/Sodium Chloride 1,000 mls @ 125 mls/hr 01/08/18 10:15 D5-1/2ns - IV ASDIR PITO Ceftriaxone Sodium 1 gm/ 100 mls @ 200 mls/hr 01/09/18 10:00 Dextrose IVPB DAILY [facility] Protocol Metoprolol Succinate 50 mg 01/08/18 11:00 01/08/18 12:25 Toprol Xl - PO 50 mg DAILY [facility] Administration Ondansetron HCl 4 mg 01/08/18 10:16 Zofran Injection IVPUSH Q6H PRN NAUSEA AND/OR VOMITING ASSESSMENT/PLAN: 47 year old female who was discharged on 01/07/18 s/p right ureteroscopy with stent placement for right hydronephrosis, pyelonephritis came back to the hospital on 01/08/18 in midnight because of pain in abdomen and hematuria. Hematuria. COMPA Subtheraputic INR H/O DVT, PE and protein deficiency. - Patient has a history of PE, DVT and ? hyper coagulable states i.e ? protein C deficiency for which she was on Coumadin since 2009. Coumadin was held in last admission for supratheraputic INR and for procedure. She was stated back on warfarin on day of discharge i.e 01/07/18 with bridge of Lovenox 90 BID for 5 days. She got first dose of Lovenox on Friday and on Friday she got 2 more doses of Lovenox with warfarin. - Hematuria started after procedure but after getting AC it got worse. For today we can give her lovenox 40 for DVT prophylaxis. Once urine starts getting clear we can start her on full dose lovenox and bridge with warfarin. - Discussed with urologist Dr. Levine. Patient can be start on AC. Dispo: We will continue to follow the patient. Thank you for this consultative opportunity. <Pelon Hogue - Last Filed: 01/09/18 08:58> Visit type - Emergency Visit Emergency Visit: Yes ED Registration Date: 01/08/18 Care time: The patient presented to the Emergency Department on the above date and was hospitalized for further evaluation of their emergent condition. - New Patient This patient is new to me today: Yes Date on this admission: 01/09/18 - Critical Care Critical Care patient: No <Pelon Hogue - Last Filed: 01/09/18 08:58>
[2018-01-08] MEDS: DEXTROSE 5%-0.45% SALINE 1,000 ML IV SCH (13:06)
[2018-01-08] MEDS: ACETAMINOPHEN 1000 MG/100 ML VIAL (NON FORMULARY) IVPB PRN ×2 (13:13→21:40)
[2018-01-08] MEDS ORDERED: ENOXAPARIN NA (PORCINE) 100 MG/1 ML DISP.SYRIN SQ SCH (13:45)
[2018-01-08] MEDS ORDERED: WARFARIN NA 7.5 MG TABLET (FP) PO SCH (13:45)
[2018-01-08] MEDS: ENOXAPARIN NA (PORCINE) 40 MG/0.4 ML DISP.SYRIN SQ SCH (17:23)
[2018-01-08 21:28] LABS: URINE APPEARANCE CLOUDY; URINE BILIRUBIN NEGATIVE (<2.0 mg/dL); URINE COLOR RED; URINE GLUCOSE (UA) 1+ (NEGATIVE); URINE KETONE NEGATIVE (NEGATIVE); URINE NITRITE NEGATIVE (NEGATIVE); URINE UROBILINOGEN NEGATIVE mg/dL (0.2-1.0)
[2018-01-08 21:30] LABS: URINE LEUK ESTERASE 1+ (NEGATIVE); URINE PROTEIN 2+ (NEGATIVE)
[2018-01-08] MEDS: ATORVASTATIN CA 20 MG TABLET (FP) PO SCH (21:37)
[2018-01-08 22:07] LABS: EPI CELLS RARE /HPF (FEW); URINE BACTERIA RARE /hpf (NONE SEEN)
[2018-01-09] MEDS: DEXTROSE 5%-0.45% SALINE 1,000 ML IV SCH ×3 (05:56→22:17)
[2018-01-09 08:44] LABS: BASO % 1.1 % (0-2.0); EOS % 4.9 % (0-4.5); HEMATOCRIT 29.1 % (32.4-45.2); HEMOGLOBIN 9.7 GM/dL (10.7-15.3); LYMPH % 35.3 % (8-40); MCH 27.3 pg (25.7-33.7); MCHC 33.4 g/dl (32.0-36.0); MEAN CELL VOLUME 81.6 fl (80-96); MEAN PLT VOLUME 7.9 fl (7.5-11.1); MONO % 10.2 % (3.8-10.2); NEUT % 48.5 % (42.8-82.8); PLATELET COUNT 334 K/MM3 (134-434); RBC 3.57 M/mm3 (3.60-5.2); RDW 14.8 % (11.6-15.6); WHITE BLOOD COUNT 5.5 K/mm3 (4.0-10.0)
[2018-01-09 08:57] LABS: INR 1.39 (0.83-1.09); PROTHROMBIN TIME (PATIENT) 15.7 SEC (9.7-13.0)
[2018-01-09 09:04] LABS: ANION GAP 4 (8-16); BLOOD UREA NITROGEN 9 mg/dL (7-18); CALCIUM 8.7 mg/dL (8.5-10.1); CHLORIDE 113 mmol/L (98-107); CO2 29 mmol/L (21-32); GLUCOSE,RANDOM 121 mg/dL (74-106); PHOSPHOROUS 3.4 mg/dL (2.5-4.9); POTASSIUM 4.1 mmol/L (3.5-5.1); SODIUM 146 mmol/L (136-145)
[2018-01-09] MEDS ORDERED: PT OWN MED DRAWER 7, Y5N ONE (09:30)
[2018-01-09] MEDS: ENOXAPARIN NA (PORCINE) 40 MG/0.4 ML DISP.SYRIN SQ SCH (09:35)
[2018-01-09] MEDS: CHOLECALCIFEROL (VITAMIN D3) 1,000 UNIT TABLET (FP) PO SCH (09:35)
[2018-01-09] MEDS ORDERED: CEFTRIAXONE 1 GM in DEXTROSE 5%-WATER 100 ML IVPB SCH (10:00)
--- NOTE | 2018-01-09 12:29 | PN ---
Progress Note, Physician Chief Complaint: Pt sitting in bed in no acute distress. reports still having hematuria, no clots. c/o dysuria and abd pain. otherwise denies chest pain, sob, n/v/d - Current Medication List Current Medications: Active Medications Atorvastatin Calcium (Lipitor -) 20 mg PO HS [facility] Last Admin: 01/08/18 21:37 Dose: 20 mg Cholecalciferol (Vitamin D3 -) 500 unit PO DAILY [facility] Last Admin: 01/09/18 09:35 Dose: 500 unit Enoxaparin Sodium (Lovenox -) 40 mg SQ DAILY [facility] Last Admin: 01/09/18 09:35 Dose: 40 mg Dextrose/Sodium Chloride (D5-1/2ns -) 1,000 mls @ 125 mls/hr IV ASDIR [facility] Last Admin: 01/09/18 05:56 Dose: 125 mls/hr Ceftriaxone Sodium 1 gm/ (Dextrose) 100 mls @ 200 mls/hr IVPB DAILY [facility]; Protocol Last Admin: 01/09/18 09:36 Dose: 200 mls/hr Metoprolol Succinate (Toprol Xl -) 50 mg PO DAILY [facility] Last Admin: 01/09/18 09:35 Dose: 50 mg Ondansetron HCl (Zofran Injection) 4 mg IVPUSH Q6H PRN PRN Reason: NAUSEA AND/OR VOMITING Last Admin: 01/09/18 12:00 Dose: 4 mg - Objective Vital Signs: Vital Signs Temperature 98.0 F 01/09/18 06:00 Pulse Rate 62 01/09/18 06:00 Respiratory Rate 19 01/09/18 06:00 Blood Pressure 112/70 01/09/18 06:00 O2 Sat by Pulse Oximetry (%) 100 01/08/18 21:00 Constitutional: Yes: Well Nourished, No Distress, Calm Cardiovascular: Yes: WNL, Regular Rate and Rhythm. No: Gallop, Murmur Respiratory: Yes: WNL, Regular, CTA Bilaterally. No: Accessory Muscle Use, Rhonchi, SOB, Tachypnea, Wheezes Gastrointestinal: Yes: Normal Bowel Sounds, Soft, Tenderness (rlq, suprapubic mild). No: Distention Genitourinary: Yes: CVA Tenderness - Right, Hematuria. No: Bladder Distention Musculoskeletal: Yes: WNL Extremities: Yes: WNL Edema: No Neurological: Yes: WNL, Alert, Oriented Psychiatric: Yes: WNL, Alert, Oriented Labs: CBC, BMP 01/09/18 08:00 01/09/18 08:00 INR, PTT INR 1.39 (0.83-1.09) H 01/09/18 08:00 Problem List - Problems (1) Pyelonephritis Code(s): N12 - TUBULO-INTERSTITIAL NEPHRITIS, NOT SPCF ACUTE OR CHRONIC (2) Hematuria Code(s): R31.9 - HEMATURIA, UNSPECIFIED Qualifiers: Hematuria type: gross Qualified Code(s): R31.0 - Gross hematuria (3) Hydronephrosis, right Code(s): N13.30 - UNSPECIFIED HYDRONEPHROSIS (4) COMPA (acute kidney injury) Code(s): N17.9 - ACUTE KIDNEY FAILURE, UNSPECIFIED (5) Nausea Code(s): R11.0 - NAUSEA (6) Abdominal pain Code(s): R10.9 - UNSPECIFIED ABDOMINAL PAIN Qualifiers: Abdominal location: right lower quadrant Qualified Code(s): R10.31 - Right lower quadrant pain (7) Subtherapeutic international normalized ratio (INR) Code(s): R79.1 - ABNORMAL COAGULATION PROFILE (8) Protein C deficiency Code(s): D68.59 - OTHER PRIMARY THROMBOPHILIA (9) CAD (coronary artery disease) Code(s): I25.10 - ATHSCL HEART DISEASE OF [place] CORONARY ARTERY W/O ANG PCTRS Qualifiers: Coronary Disease-Associated Artery/Lesion type: grindstone artery [place] vs. transplanted heart: grindstone heart Associated angina: without angina Qualified Code(s): I25.10 - Atherosclerotic heart disease of [place] coronary artery without angina pectoris (10) HTN (hypertension) Code(s): I10 - ESSENTIAL (PRIMARY) HYPERTENSION Qualifiers: Hypertension type: essential hypertension Qualified Code(s): I10 - Essential (primary) hypertension Assessment/Plan (1) Pyelonephritis Assessment/Plan: CT- enlarged right kidney with thickening of renal pelvis wall, improvement of perinephric stranding s/p right ureteroscopy/stent on 01/06 still w/ abd/supra pubic pain, dysuria urine culture growing staph-coag neg org- ID consulted ceftriaxone day 2 IVF urology consult Code(s): N12 - TUBULO-INTERSTITIAL NEPHRITIS, NOT SPCF ACUTE OR CHRONIC (2) Hematuria Assessment/Plan: as above hold AC until hematuria clears continue lovenox 40mg dose per heme hematology following Code(s): R31.9 - HEMATURIA, UNSPECIFIED Qualifiers: Hematuria type: gross Qualified Code(s): R31.0 - Gross hematuria (3) Hydronephrosis, right Assessment/Plan: as above Code(s): N13.30 - UNSPECIFIED HYDRONEPHROSIS (4) COMPA (acute kidney injury) Assessment/Plan: resolved ivf Code(s): N17.9 - ACUTE KIDNEY FAILURE, UNSPECIFIED (5) Nausea Assessment/Plan: resolved Code(s): R11.0 - NAUSEA (6) Abdominal pain Assessment/Plan: slightly better monitor Code(s): R10.9 - UNSPECIFIED ABDOMINAL PAIN Qualifiers: Abdominal location: right lower quadrant Qualified Code(s): R10.31 - Right lower quadrant pain (7) Subtherapeutic international normalized ratio (INR) Assessment/Plan: lovenox to coumadin bridge- will hold until ok by hematology Code(s): R79.1 - ABNORMAL COAGULATION PROFILE (8) Protein C deficiency Assessment/Plan: hx of dvt/pe on coumadin outpt lovenox to coumadin bridge on hold Code(s): D68.59 - OTHER PRIMARY THROMBOPHILIA (9) CAD (coronary artery disease) Assessment/Plan: no acute acs borderline stress test outpt, plan for cta by cardiology continue statin/ ac Code(s): I25.10 - ATHSCL HEART DISEASE OF [place] CORONARY ARTERY W/O ANG PCTRS Qualifiers: Coronary Disease-Associated Artery/Lesion type: [place] artery [place] vs. transplanted heart: grindstone heart Associated angina: without angina Qualified Code(s): I25.10 - Atherosclerotic heart disease of [place] coronary artery without angina pectoris (10) HTN (hypertension) Assessment/Plan: controlled continue metoprolol Code(s): I10 - ESSENTIAL (PRIMARY) HYPERTENSION Qualifiers: Hypertension type: essential hypertension Qualified Code(s): I10 - Essential (primary) hypertension
[2018-01-09] MEDS ORDERED: ACETAMINOPHEN 325 MG TABLET (FP) PO PRN (12:31)
[2018-01-09] MEDS ORDERED: oxyCODONE HCL 5 MG TABLET PO PRN (12:31)
[2018-01-09] MEDS: VANCOMYCIN 1 GM PREMIX - 1 GM/200 ML BAG IVPB ONE ×2 (14:33→14:36)
--- NOTE | 2018-01-09 14:47 | PN ---
Progress Note (short form) - Note Progress Note: ID Consult dictated Gross hematuria, likely secondary to recent bx/ anticoagulation Pelvic pain syndrome + URINE C/S SCN probable contaminant Augmentin + ? vancomycin allergy Obtain repeat urine c/s BC Empiric ceftriaxone
--- NOTE | 2018-01-09 16:07 | CONS ---
DATE OF CONSULTATION: DATE OF DICTATION: 01/09/2018 INFECTIOUS DISEASE CONSULTATION HISTORY OF PRESENT ILLNESS: The patient is a 47-year-old female with a long and complicated urological history. Patient states that she has been suffering from recurrent urinary tract infections since age 10. She had been seen by numerous urologists in the past, has been on various antibiotics for urinary tract infections and is status post bladder stimulator 2 years ago for these recurrent urinary tract infections. Patient was unable to elaborate on culture results, however states she is usually treated with a quinolone or nitrofurantoin. She was hospitalized at [facility] from January 01 through January 07 with pelvic pain syndrome. She was seen in consultation by urology. A cystoscopy and ureteroscopy was performed. Biopsies were obtained which preliminarily are negative for malignancy. A right ureteral stent was placed. Her course was complicated by coagulopathy. The patient is on Coumadin for hypercoagulable state, as she was noted to have an INR of 8. Post discharge she developed gross hematuria and recurrent suprapubic and right flank pain. Patient reports stabbing pain in the suprapubic area with radiation to the right upper quadrant. She had complained of chills and loose bowel movements. She is now readmitted. She has had a low grade fever, normal white blood cell count. Urinalysis shows greater than 100 red cells, 0 to 3 white cells. Urine culture grew a coagulase negative staph. At the present time she is comfortable. She denies any severe pain at the present time. No high grade fever or shaking chills. A CAT scan of the abdomen and pelvis revealed stranding right perinephric area which improved on subsequent CAT scan. PAST MEDICAL HISTORY: Positive for hypercoagulable state secondary to protein C deficiency. She is on long-term anticoagulation with Coumadin, history of pulmonary embolism, hypertension, coronary artery disease. PAST SURGICAL HISTORY: Status post bladder stimulator. Tubal ligation and section. ALLERGIES: AUGMENTIN (hives) and VANCOMYCIN (hives). This was apparently noted in 2017. MEDICATION: Coumadin, Lipitor, Toprol, Lovenox. SOCIAL HISTORY: Negative for tobacco use. SYSTEMS REVIEW: Neurologic: No loss of consciousness, seizure activity, focal weakness. Cardiac: Negative for chest pain or palpitations. Respiratory: Negative for cough or sputum production. Gastrointestinal: Negative vomiting, positive diarrhea. Genitourinary: As per HPI. LABORATORY DATA: White count 5.5, hematocrit 29.1, platelet count 334, BUN 9, creatinine 1.0. Urinalysis greater than 100 red cells, 0-3 white cells. Urine culture coagulase negative staph. PHYSICAL EXAMINATION: General: On exam, she is awake and alert, lying in bed, she is in no acute distress. Vital signs: Temperature 98.2, T-max 99.9, blood pressure 149/88, pulse 69 regular, respirations 20 per minute. HEENT: Sclerae anicteric. Cardiovascular: Heart sounds S1, S2. Lungs: Clear. Abdomen: Soft, no suprapubic or flank tenderness elicited. Extremities: Negative for edema. IMPRESSION: 1. Gross hematuria likely secondary to recent biopsy in the setting of anticoagulation. 2. Pelvic pain syndrome, unclear etiology. 3. Positive urine culture, staph coagulase negative, probable contaminant. 4. AUGMENTIN and VANCOMYCIN allergies. Will repeat urine culture. Obtain blood cultures. Empiric antibiotic coverage. Pending cultures with ceftriaxone. Urology followup. Thank you for the kind referral. CHRIS MORGAN M.D. [facility]/[id number]
--- NOTE | 2018-01-09 16:30 | PN ---
Physical Exam: SUBJECTIVE: Patient seen and examined still complains of hematuria. Still have increase in frequency of micturation. OBJECTIVE: Vital Signs Period Temp Pulse Resp BP Sys/Martinez Pulse Ox Last 24 Hr 98.0 F-98.8 F 62-77 19-20 112-149/58-88 98-100 GENERAL: Awake, alert, and fully oriented, HEAD: Normal with no signs of trauma. EYES: conjunctiva clear. No lid lag. EARS, NOSE, THROAT: moist mucous membranes. LUNGS: Breath sounds equal, clear to auscultation bilaterally. No wheezes, and no crackles. No accessory muscle use. Axilla : no lymphnodes palpable Breast: No lump palpable. HEART: Regular rate and rhythm, normal S1 and S2 ABDOMEN: Soft, mild tender to touch in RLQ, R lumbar area, not distended, normoactive bowel sounds, no guarding, MUSCULOSKELETAL: Normal range of motion at all joints. No bony deformities or tenderness UPPER EXTREMITIES: 2+ pulses, warm, well-perfused. No cyanosis. No clubbing. LOWER EXTREMITIES: warm, well-perfused. No calf tenderness. No peripheral edema. PSYCHIATRIC: Cooperative. Good eye contact. SKIN: Warm, dry, Laboratory Results - last 24 hr 01/08/18 01/09/18 01/09/18 20:30 08:00 08:00 WBC 5.5 RBC 3.57 L Hgb 9.7 L Hct 29.1 L MCV 81.6 MCH 27.3 MCHC 33.4 RDW 14.8 Plt Count 334 MPV 7.9 Absolute Neuts (auto) 2.7 Neutrophils % 48.5 D Lymphocytes % 35.3 D Monocytes % 10.2 Eosinophils % 4.9 H D Basophils % 1.1 Nucleated RBC % 0 PT with INR INR PTT (Actin FS) Sodium 146 H Potassium 4.1 Chloride 113 H Carbon Dioxide 29 Anion Gap 4 L BUN 9 Creatinine 1.0 Creat Clearance w eGFR 58.93 Random Glucose 121 H Calcium 8.7 Phosphorus 3.4 Magnesium 2.0 Urine Color Red Urine Appearance Cloudy Urine pH 6.0 Ur Specific [place] 1.010 Urine Protein 2+ H Urine Glucose (UA) 1+ H Urine Ketones Negative Urine Blood 2+ H Urine Nitrite Negative Urine Bilirubin Negative Urine Urobilinogen Negative Ur Leukocyte Esterase 1+ H Urine WBC (Auto) 0-3 Urine RBC (Auto) >100 Ur Epithelial Cells Rare Urine Bacteria Rare 01/09/18 01/09/18 08:00 08:00 WBC RBC Hgb Hct MCV MCH MCHC RDW Plt Count MPV Absolute Neuts (auto) Neutrophils % Lymphocytes % Monocytes % Eosinophils % Basophils % Nucleated RBC % PT with INR 15.70 H INR 1.39 H PTT (Actin FS) 32.7 Sodium Potassium Chloride Carbon Dioxide Anion Gap BUN Creatinine Creat Clearance w eGFR Random Glucose Calcium Phosphorus Magnesium Urine Color Urine Appearance Urine pH Ur Specific [place] Urine Protein Urine Glucose (UA) Urine Ketones Urine Blood Urine Nitrite Urine Bilirubin Urine Urobilinogen Ur Leukocyte Esterase Urine WBC (Auto) Urine RBC (Auto) Ur Epithelial Cells Urine Bacteria Active Medications Generic Name Dose Route Start Last Admin Trade Name Freq PRN Reason Stop Dose Admin Acetaminophen 650 mg 01/09/18 12:31 Tylenol - PO Q6H PRN PAIN LEVEL 1-5 Atorvastatin Calcium 20 mg 01/08/18 22:00 01/08/18 21:37 Lipitor - PO 20 mg HS [facility] Administration Cholecalciferol 500 unit 01/09/18 10:00 01/09/18 09:35 Vitamin D3 - PO 500 unit DAILY [facility] Administration Enoxaparin Sodium 40 mg 01/08/18 18:00 01/09/18 09:35 Lovenox - SQ 40 mg DAILY [facility] Administration Dextrose/Sodium Chloride 1,000 mls @ 125 mls/hr 01/08/18 10:15 01/09/18 14:33 D5-1/2ns - IV 125 mls/hr ASDIR [facility] Administration Ceftriaxone Sodium 2 gm/ 100 mls @ 200 mls/hr 01/10/18 10:00 Dextrose IVPB DAILY [facility] Protocol Metoprolol Succinate 50 mg 01/08/18 11:00 01/09/18 09:35 Toprol Xl - PO 50 mg DAILY [facility] Administration Ondansetron HCl 4 mg 01/08/18 10:16 01/09/18 12:00 Zofran Injection IVPUSH 4 mg Q6H PRN Administration NAUSEA AND/OR VOMITING Oxycodone HCl 2.5 mg 01/09/18 12:31 Roxicodone - PO Q6H PRN PAIN LEVEL 6-10 ASSESSMENT/PLAN: 47 year old female who was discharged on 01/07/18 s/p right ureteroscopy with stent placement for right hydronephrosis, pyelonephritis came back to the hospital on 01/08/18 in midnight because of pain in abdomen and hematuria. Hematuria. COMPA UTI H/O DVT, PE and protein C deficiency. - Patient still have hematuria. We will continue with lovenox 40 for DVT prophylaxis. Once urine starts getting clear we can start her on full dose lovenox and bridge with warfarin. - Lupus anticogulent and anticardiolipin ordered. - Urology follow up. Dispo: We will continue to follow the patient. Thank you for this consultative opportunity. Visit type - Emergency Visit Emergency Visit: Yes ED Registration Date: 01/08/18 Care time: The patient presented to the Emergency Department on the above date and was hospitalized for further evaluation of their emergent condition. - New Patient This patient is new to me today: Yes Date on this admission: 01/09/18 - Critical Care Critical Care patient: No
--- NOTE | 2018-01-09 18:00 | PN ---
Teaching Attending Note Name of Resident: Pelon Hogue ATTENDING PHYSICIAN STATEMENT I saw and evaluated the patient. I reviewed the resident's note and discussed the case with the resident. I agree with the resident's findings and plan as documented. SUBJECTIVE: Patient seen and examined Nurses report that urine is clearer and with less blood Currently on prophylactic dose of lovenox. Patient describes a blood clot in her lungs years ago, but was in hospital for about a week on IV medicines. She was not discharged on any anticoagulation. Also in 2009 describes RUE blood clot diagnosed by her PMD and told of Protein C deficiency. Has been on A/C with coumadin since that time. OBJECTIVE: ASSESSMENT AND PLAN: Would like to validate Protein C deficieny In interim, when less hematuria bridge to coumadin---slowly
[2018-01-09] MEDS: ATORVASTATIN CA 20 MG TABLET (FP) PO SCH (22:16)
[2018-01-10] MEDS: DEXTROSE 5%-0.45% SALINE 1,000 ML IV SCH ×2 (06:52→15:08)
[2018-01-10 08:18] LABS: BASO % 0.9 % (0-2.0); EOS % 5.2 % (0-4.5); HEMATOCRIT 27.7 % (32.4-45.2); HEMOGLOBIN 9.3 GM/dL (10.7-15.3); LYMPH % 32.6 % (8-40); MCH 27.2 pg (25.7-33.7); MCHC 33.6 g/dl (32.0-36.0); MEAN CELL VOLUME 80.8 fl (80-96); MONO % 11.6 % (3.8-10.2); NEUT % 49.7 % (42.8-82.8); PLATELET COUNT 336 K/MM3 (134-434); RBC 3.43 M/mm3 (3.60-5.2); RDW 14.4 % (11.6-15.6)
[2018-01-10 08:27] LABS: INR 1.31 (0.83-1.09); PROTHROMBIN TIME (PATIENT) 14.8 SEC (9.7-13.0)
[2018-01-10 08:51] LABS: CHLORIDE 110 mmol/L (98-107); SODIUM 144 mmol/L (136-145)
[2018-01-10 09:00] LABS: ANION GAP 7 (8-16); BLOOD UREA NITROGEN 8 mg/dL (7-18); CO2 27 mmol/L (21-32); GLUCOSE,RANDOM 125 mg/dL (74-106)
[2018-01-10] MEDS ORDERED: DEXTROSE 5%-WATER 100 ML IVPB ONE (09:23)
[2018-01-10] MEDS: ENOXAPARIN NA (PORCINE) 40 MG/0.4 ML DISP.SYRIN SQ SCH (09:32)
[2018-01-10] MEDS: CEFTRIAXONE 2 GM in DEXTROSE 5%-WATER 100 ML IVPB SCH (09:32)
[2018-01-10] MEDS: CHOLECALCIFEROL (VITAMIN D3) 1,000 UNIT TABLET (FP) PO SCH (09:33)
--- NOTE | 2018-01-10 12:09 | PN ---
Progress Note, Physician History of Present Illness: Awake Seated in bed Occasional suprapubic pain Reports urinary urgency with small volumes of urine voided No c/o dysuria. Hematuria improved No c/o fever/ chills No adverse rxn to cephalosporin - Current Medication List Current Medications: Active Medications Acetaminophen (Tylenol -) 650 mg PO Q6H PRN PRN Reason: PAIN LEVEL 1-5 Atorvastatin Calcium (Lipitor -) 20 mg PO HS [facility] Last Admin: 01/09/18 22:16 Dose: 20 mg Cholecalciferol (Vitamin D3 -) 500 unit PO DAILY [facility] Last Admin: 01/10/18 09:33 Dose: 500 unit Enoxaparin Sodium (Lovenox -) 40 mg SQ DAILY [facility] Last Admin: 01/10/18 09:32 Dose: 40 mg Dextrose/Sodium Chloride (D5-1/2ns -) 1,000 mls @ 125 mls/hr IV ASDIR [facility] Last Admin: 01/10/18 06:52 Dose: 125 mls/hr Ceftriaxone Sodium 2 gm/ (Dextrose) 100 mls @ 200 mls/hr IVPB DAILY [facility]; Protocol Last Admin: 01/10/18 09:32 Dose: 200 mls/hr Metoprolol Succinate (Toprol Xl -) 50 mg PO DAILY [facility] Last Admin: 01/10/18 09:33 Dose: 50 mg Ondansetron HCl (Zofran Injection) 4 mg IVPUSH Q6H PRN PRN Reason: NAUSEA AND/OR VOMITING Last Admin: 01/09/18 12:00 Dose: 4 mg Oxycodone HCl (Roxicodone -) 2.5 mg PO Q6H PRN PRN Reason: PAIN LEVEL 6-10 - Objective Vital Signs: Vital Signs Temperature 98.2 F 01/10/18 10:00 Pulse Rate 78 01/10/18 10:00 Respiratory Rate 20 01/10/18 10:00 Blood Pressure 113/68 01/10/18 10:00 O2 Sat by Pulse Oximetry (%) 98 01/09/18 22:00 Constitutional: Yes: No Distress Eyes: Yes: Conjunctiva Clear Cardiovascular: Yes: Regular Rate and Rhythm, S1, S2 Respiratory: Yes: CTA Bilaterally Gastrointestinal: Yes: Normal Bowel Sounds, Soft. No: Tenderness Genitourinary: No: CVA Tenderness - Left, CVA Tenderness - Right Edema: No Labs: CBC, BMP 01/10/18 07:20 01/10/18 07:20 INR, PTT INR 1.31 (0.83-1.09) H 01/10/18 07:20 Assessment/Plan Gross hematuria ? UTI Pelvic pain syndrome + Urine c/s SCN likely contaminant Augmentin/ vancomycin allergies Continue empiric ceftriaxone follow up
[2018-01-10] MEDS: ATORVASTATIN CA 20 MG TABLET (FP) PO SCH (21:00)
[2018-01-11 08:03] LABS: INR 1.2 (0.83-1.09); PROTHROMBIN TIME (PATIENT) 13.6 SEC (9.7-13.0)
[2018-01-11] MEDS ORDERED: DEXTROSE 5%-WATER 100 ML IVPB ONE (09:34)
[2018-01-11] MEDS: CHOLECALCIFEROL (VITAMIN D3) 1,000 UNIT TABLET (FP) PO SCH (09:36)
[2018-01-11] MEDS: ENOXAPARIN NA (PORCINE) 40 MG/0.4 ML DISP.SYRIN SQ SCH (09:37)
[2018-01-11] MEDS: CEFTRIAXONE 2 GM in DEXTROSE 5%-WATER 100 ML IVPB SCH (09:37)
--- NOTE | 2018-01-11 12:03 | PN ---
Progress Note (short form) - Note Progress Note: Hematology/Oncology Follow-up Note S: Patient says she is overall feeling better. She notes light pinkish urine today that is much better than before.She has bladder irritation when she urinates. Last Vital Signs Temp Pulse Resp BP Pulse Ox 98.2 F 65 20 112/51 96 01/11/18 10:00 01/11/18 10:00 01/11/18 10:00 01/11/18 10:00 01/10/18 21:00 Physical Exam : AOx3, pleasant PERRLA, EOMI CTA (BL), S12 wnl Soft abdomen No c/c/e CBC, BMP 01/10/18 07:20 01/10/18 07:20 Current Medications Generic Name Dose Route Start Last Admin Trade Name Freq PRN Reason Stop Dose Admin Acetaminophen 650 mg 01/09/18 12:31 Tylenol - PO Q6H PRN PAIN LEVEL 1-5 Atorvastatin Calcium 20 mg 01/08/18 22:00 01/10/18 21:00 Lipitor - PO 20 mg HS [facility] Administration Cholecalciferol 500 unit 01/09/18 10:00 01/11/18 09:36 Vitamin D3 - PO 500 unit DAILY [facility] Administration Enoxaparin Sodium 40 mg 01/08/18 18:00 01/11/18 09:37 Lovenox - SQ 40 mg DAILY [facility] Administration Dextrose/Sodium Chloride 1,000 mls @ 125 mls/hr 01/08/18 10:15 01/10/18 15:08 D5-1/2ns - IV 125 mls/hr ASDIR [facility] Administration Ceftriaxone Sodium 2 gm/ 100 mls @ 200 mls/hr 01/10/18 10:00 01/11/18 09:37 Dextrose IVPB 200 mls/hr DAILY [facility] Administration Protocol Metoprolol Succinate 50 mg 01/08/18 11:00 01/11/18 09:37 Toprol Xl - PO 50 mg DAILY [facility] Administration Ondansetron HCl 4 mg 01/08/18 10:16 01/09/18 12:00 Zofran Injection IVPUSH 4 mg Q6H PRN Administration NAUSEA AND/OR VOMITING Oxycodone HCl 2.5 mg 01/09/18 12:31 01/10/18 20:58 Roxicodone - PO 2.5 mg Q6H PRN Administration PAIN LEVEL 6-10 A/P : 47 y/o female with Hx of protein C deficiency? Hx of RUE blood clot in 2009 and on A/C with coumadin since then now presenting with hematuria -Much improved with only light pinkish urine today, can start bridge to coumadin from tomorrow if continues to have resolving hematuria -protein C defc work-up in progress -urine Cx +ve staph capitis, Bcx are negative, On IV ceftriaxone, although primary team feels this is contaminant, would repeat Ucx's given that patient is complaining of bladder irritation -will continue to follow
--- NOTE | 2018-01-11 12:14 | PN ---
Progress Note, Physician Chief Complaint: No new complaints feels improved , light pink urine no fever - Current Medication List Current Medications: Active Medications Acetaminophen (Tylenol -) 650 mg PO Q6H PRN PRN Reason: PAIN LEVEL 1-5 Atorvastatin Calcium (Lipitor -) 20 mg PO HS [facility] Last Admin: 01/10/18 21:00 Dose: 20 mg Cholecalciferol (Vitamin D3 -) 500 unit PO DAILY [facility] Last Admin: 01/11/18 09:36 Dose: 500 unit Enoxaparin Sodium (Lovenox -) 40 mg SQ DAILY [facility] Last Admin: 01/11/18 09:37 Dose: 40 mg Dextrose/Sodium Chloride (D5-1/2ns -) 1,000 mls @ 125 mls/hr IV ASDIR [facility] Last Admin: 01/10/18 15:08 Dose: 125 mls/hr Ceftriaxone Sodium 2 gm/ (Dextrose) 100 mls @ 200 mls/hr IVPB DAILY [facility]; Protocol Last Admin: 01/11/18 09:37 Dose: 200 mls/hr Metoprolol Succinate (Toprol Xl -) 50 mg PO DAILY [facility] Last Admin: 01/11/18 09:37 Dose: 50 mg Ondansetron HCl (Zofran Injection) 4 mg IVPUSH Q6H PRN PRN Reason: NAUSEA AND/OR VOMITING Last Admin: 01/09/18 12:00 Dose: 4 mg Oxycodone HCl (Roxicodone -) 2.5 mg PO Q6H PRN PRN Reason: PAIN LEVEL 6-10 Last Admin: 01/10/18 20:58 Dose: 2.5 mg - Objective Vital Signs: Vital Signs Temperature 98.2 F 01/10/18 10:00 Pulse Rate 65 01/10/18 10:00 Respiratory Rate 20 01/10/18 10:00 Blood Pressure 112/51 01/10/18 10:00 O2 Sat by Pulse Oximetry (%) 96 01/10/18 21:00 Constitutional: Yes: Well Nourished, No Distress, Calm Eyes: Yes: Conjunctiva Clear, EOM Intact HENT: Yes: Atraumatic, Normocephalic Neck: Yes: Supple, Trachea Midline Cardiovascular: Yes: Regular Rate and Rhythm, S1, S2. No: Bradycardia, Tachycardia Respiratory: Yes: Regular, CTA Bilaterally Gastrointestinal: Yes: Normal Bowel Sounds, Soft Musculoskeletal: No: Back Pain, Joint Stiffness, Joint Swelling Extremities: No: Calf Tenderness, Cold, Cool Edema: No Peripheral Pulses: Left Doralis Pedis: 2+, Right Dorsalis Pedis: 2+ Neurological: Yes: Alert, Oriented ...Motor Strength: WNL, LUE, LLE, RUE, RLE Labs: CBC, BMP 01/10/18 07:20 01/10/18 07:20 INR, PTT INR 1.20 (0.83-1.09) H 01/11/18 07:17 Problem List - Problems (1) Hematuria Assessment/Plan: post cystoscopic UTI F/U Urine culture on ceftriaxone Code(s): R31.9 - HEMATURIA, UNSPECIFIED Qualifiers: Hematuria type: gross Qualified Code(s): R31.0 - Gross hematuria (2) HTN (hypertension) Assessment/Plan: Cont Home medications Code(s): I10 - ESSENTIAL (PRIMARY) HYPERTENSION Qualifiers: Hypertension type: essential hypertension Qualified Code(s): I10 - Essential (primary) hypertension (3) Protein C deficiency Assessment/Plan: Off Coumadin due to hematuria DVT Code(s): D68.59 - OTHER PRIMARY THROMBOPHILIA (4) GERD (gastroesophageal reflux disease) Assessment/Plan: PPI Code(s): K21.9 - GASTRO-ESOPHAGEAL REFLUX DISEASE WITHOUT ESOPHAGITIS Qualifiers: Esophagitis presence: without esophagitis Qualified Code(s): K21.9 - Gastro -esophageal reflux disease without esophagitis
--- NOTE | 2018-01-11 12:17 | PN ---
Progress Note, Physician Chief Complaint: No new complaints feels improved , light pink urine no fever - Current Medication List Current Medications: Active Medications Acetaminophen (Tylenol -) 650 mg PO Q6H PRN PRN Reason: PAIN LEVEL 1-5 Atorvastatin Calcium (Lipitor -) 20 mg PO HS [facility] Last Admin: 01/10/18 21:00 Dose: 20 mg Cholecalciferol (Vitamin D3 -) 500 unit PO DAILY [facility] Last Admin: 01/11/18 09:36 Dose: 500 unit Enoxaparin Sodium (Lovenox -) 40 mg SQ DAILY [facility] Last Admin: 01/11/18 09:37 Dose: 40 mg Dextrose/Sodium Chloride (D5-1/2ns -) 1,000 mls @ 125 mls/hr IV ASDIR [facility] Last Admin: 01/10/18 15:08 Dose: 125 mls/hr Ceftriaxone Sodium 2 gm/ (Dextrose) 100 mls @ 200 mls/hr IVPB DAILY [facility]; Protocol Last Admin: 01/11/18 09:37 Dose: 200 mls/hr Metoprolol Succinate (Toprol Xl -) 50 mg PO DAILY [facility] Last Admin: 01/11/18 09:37 Dose: 50 mg Ondansetron HCl (Zofran Injection) 4 mg IVPUSH Q6H PRN PRN Reason: NAUSEA AND/OR VOMITING Last Admin: 01/09/18 12:00 Dose: 4 mg Oxycodone HCl (Roxicodone -) 2.5 mg PO Q6H PRN PRN Reason: PAIN LEVEL 6-10 Last Admin: 01/10/18 20:58 Dose: 2.5 mg - Objective Vital Signs: Vital Signs Temperature 98.2 F 01/11/18 10:00 Pulse Rate 65 01/11/18 10:00 Respiratory Rate 20 01/11/18 10:00 Blood Pressure 112/51 01/11/18 10:00 O2 Sat by Pulse Oximetry (%) 96 01/10/18 21:00 Constitutional: Yes: Well Nourished, No Distress, Calm Eyes: Yes: Conjunctiva Clear, EOM Intact HENT: Yes: Atraumatic, Normocephalic Neck: Yes: Supple, Trachea Midline Cardiovascular: Yes: Regular Rate and Rhythm, S1, S2. No: Bradycardia, Tachycardia Respiratory: Yes: Regular, CTA Bilaterally Gastrointestinal: Yes: Normal Bowel Sounds, Soft Musculoskeletal: No: Back Pain, Joint Stiffness, Joint Swelling Extremities: No: Calf Tenderness, Cold, Cool Edema: No Peripheral Pulses: Left Doralis Pedis: 2+, Right Dorsalis Pedis: 2+ Neurological: Yes: Alert, Oriented ...Motor Strength: WNL, LUE, LLE, RUE, RLE Labs: CBC, BMP 01/10/18 07:20 01/10/18 07:20 INR, PTT INR 1.20 (0.83-1.09) H 01/11/18 07:17 Microbiology 01/08/18 05:06 Urine Culture - Final Urine - Urine Clean Catch Staph Capitis Subsp Ureolyticu 01/09/18 18:00 Blood Culture - Preliminary Blood - Peripheral Venous NO GROWTH OBTAINED AFTER 24 HOURS, INCUBATION TO CONTINUE FOR 4 DAYS. 01/09/18 16:00 Blood Culture - Preliminary Blood - Peripheral Venous NO GROWTH OBTAINED AFTER 24 HOURS, INCUBATION TO CONTINUE FOR 4 DAYS. Problem List - Problems (1) Hematuria Assessment/Plan: post cystoscopic UTI F/U Urine culture on ceftriaxone, TWBC trended normal Grew S Capitis F/U Id recommendations Code(s): R31.9 - HEMATURIA, UNSPECIFIED Qualifiers: Hematuria type: gross Qualified Code(s): R31.0 - Gross hematuria (2) HTN (hypertension) Assessment/Plan: Cont Home medications Code(s): I10 - ESSENTIAL (PRIMARY) HYPERTENSION Qualifiers: Hypertension type: essential hypertension Qualified Code(s): I10 - Essential (primary) hypertension (3) Protein C deficiency Assessment/Plan: Off Coumadin due to hematuria DVT Code(s): D68.59 - OTHER PRIMARY THROMBOPHILIA (4) GERD (gastroesophageal reflux disease) Assessment/Plan: PPI Code(s): K21.9 - GASTRO-ESOPHAGEAL REFLUX DISEASE WITHOUT ESOPHAGITIS Qualifiers: Esophagitis presence: without esophagitis Qualified Code(s): K21.9 - Gastro -esophageal reflux disease without esophagitis (5) UTI (urinary tract infection) Code(s): N39.0 - URINARY TRACT INFECTION, SITE NOT SPECIFIED (6) UTI (urinary tract infection) Assessment/Plan: On cerftrixone improving Grew Staph will F/U ID for PO Options Code(s): N39.0 - URINARY TRACT INFECTION, SITE NOT SPECIFIED Qualifiers: Urinary tract infection type: acute cystitis Hematuria presence: with hematuria Qualified Code(s): N30.01 - Acute cystitis with hematuria
--- NOTE | 2018-01-11 12:36 | PN ---
Progress Note, Physician History of Present Illness: Awake Seated in bed Reports continued urinary urgency with small volumes of urine voided No c/o dysuria. Hematuria improved No c/o fever/ chills No adverse rxn to cephalosporin - Current Medication List Current Medications: Active Medications Acetaminophen (Tylenol -) 650 mg PO Q6H PRN PRN Reason: PAIN LEVEL 1-5 Atorvastatin Calcium (Lipitor -) 20 mg PO [facility] Last Admin: 01/10/18 21:00 Dose: 20 mg Cholecalciferol (Vitamin D3 -) 500 unit PO DAILY [facility] Last Admin: 01/11/18 09:36 Dose: 500 unit Enoxaparin Sodium (Lovenox -) 40 mg SQ DAILY [facility] Last Admin: 01/11/18 09:37 Dose: 40 mg Dextrose/Sodium Chloride (D5-1/2ns -) 1,000 mls @ 125 mls/hr IV ASDIR [facility] Last Admin: 01/10/18 15:08 Dose: 125 mls/hr Ceftriaxone Sodium 2 gm/ (Dextrose) 100 mls @ 200 mls/hr IVPB DAILY [facility]; Protocol Last Admin: 01/11/18 09:37 Dose: 200 mls/hr Metoprolol Succinate (Toprol Xl -) 50 mg PO DAILY [facility] Last Admin: 01/11/18 09:37 Dose: 50 mg Ondansetron HCl (Zofran Injection) 4 mg IVPUSH Q6H PRN PRN Reason: NAUSEA AND/OR VOMITING Last Admin: 01/09/18 12:00 Dose: 4 mg Oxycodone HCl (Roxicodone -) 2.5 mg PO Q6H PRN PRN Reason: PAIN LEVEL 6-10 Last Admin: 01/10/18 20:58 Dose: 2.5 mg - Objective Vital Signs: Vital Signs Temperature 98.2 F 01/11/18 10:00 Pulse Rate 65 01/11/18 10:00 Respiratory Rate 20 01/11/18 10:00 Blood Pressure 112/51 01/11/18 10:00 O2 Sat by Pulse Oximetry (%) 96 01/10/18 21:00 Constitutional: Yes: No Distress Eyes: Yes: Conjunctiva Clear Cardiovascular: Yes: Regular Rate and Rhythm, S1, S2 Respiratory: Yes: CTA Bilaterally Gastrointestinal: Yes: Normal Bowel Sounds, Soft. No: Tenderness Genitourinary: No: CVA Tenderness - Left, CVA Tenderness - Right Edema: No Labs: CBC, BMP 01/10/18 07:20 01/10/18 07:20 INR, PTT INR 1.20 (0.83-1.09) H 01/11/18 07:17 Assessment/Plan Gross hematuria ? UTI Pelvic pain syndrome + Urine c/s SCN likely contaminant Augmentin/ vancomycin allergies Continue empiric ceftriaxone follow up
[2018-01-11] MEDS: ATORVASTATIN CA 20 MG TABLET (FP) PO SCH (21:07)
[2018-01-11] MEDS: DEXTROSE 5%-0.45% SALINE 1,000 ML IV SCH (23:00)
[2018-01-12] MEDS: DEXTROSE 5%-0.45% SALINE 1,000 ML IV SCH ×2 (06:19→10:39)
[2018-01-12 07:44] LABS: INR 1.11 (0.83-1.09); PROTHROMBIN TIME (PATIENT) 12.5 SEC (9.7-13.0)
[2018-01-12 07:52] LABS: BASO % 0.9 % (0-2.0); EOS % 4.2 % (0-4.5); HEMATOCRIT 30.3 % (32.4-45.2); LYMPH % 32.7 % (8-40); MEAN CELL VOLUME 81.8 fl (80-96); MONO % 10.3 % (3.8-10.2); NEUT % 51.9 % (42.8-82.8); RDW 14.3 % (11.6-15.6); WHITE BLOOD COUNT 7.7 K/mm3 (4.0-10.0)
[2018-01-12 08:01] LABS: CHLORIDE 110 mmol/L (98-107); SODIUM 144 mmol/L (136-145)
[2018-01-12 08:12] LABS: ANION GAP 8 (8-16); BLOOD UREA NITROGEN 9 mg/dL (7-18); CALCIUM 8.8 mg/dL (8.5-10.1); CO2 26 mmol/L (21-32); CREATININE 0.9 mg/dL (0.55-1.02); GLUCOSE,RANDOM 130 mg/dL (74-106)
[2018-01-12 09:11] LABS: PLATELET ESTIMATE ADEQUATE
[2018-01-12] MEDS ORDERED: PT OWN MED DRAWER 7, Y5N ONE (10:33)
[2018-01-12] MEDS ORDERED: DEXTROSE 5%-WATER 100 ML IVPB ONE (10:34)
[2018-01-12] MEDS: CEFTRIAXONE 2 GM in DEXTROSE 5%-WATER 100 ML IVPB SCH (10:37)
[2018-01-12] MEDS: ENOXAPARIN NA (PORCINE) 40 MG/0.4 ML DISP.SYRIN SQ SCH (10:38)
--- NOTE | 2018-01-12 12:12 | DS ---
Physical Examination Vital Signs: Vital Signs Temperature 98.0 F 01/12/18 05:30 Pulse Rate 67 01/12/18 05:30 Respiratory Rate 16 01/12/18 05:30 Blood Pressure 107/67 01/12/18 05:30 O2 Sat by Pulse Oximetry (%) 96 01/10/18 21:00 Constitutional: Yes: Well Nourished, No Distress, Calm Cardiovascular: Yes: WNL, Regular Rate and Rhythm. No: Gallop, Murmur Respiratory: Yes: WNL, Regular, CTA Bilaterally. No: Accessory Muscle Use, Rhonchi, SOB, Tachypnea, Wheezes Gastrointestinal: Yes: WNL, Normal Bowel Sounds, Soft. No: Distention, Tenderness Renal/: Yes: WNL Musculoskeletal: Yes: WNL Extremities: Yes: WNL Edema: No Neurological: Yes: WNL, Alert, Oriented Psychiatric: Yes: WNL, Alert, Oriented Labs: CBC, BMP 01/12/18 06:10 01/12/18 06:10 Discharge Summary Reason For Visit: PYELONEPHRITIS Current Active Problems Hematuria (Acute) Pyelonephritis (Acute) UTI (urinary tract infection) (Acute) Hospital Course: is a 47 year old female pmh significant for protein c def- on coumadin who was readmitted s/p ureteroscopy with worsening abdominal pain, chills, dysuria, hematuria- found to have mild kirsten, leukocytosis, pyelo. AC held, hematuria improved now, pt restarted on lovenox to coumadin bridge. Pt also evaluated by hematology, f/u outpt to confirm dx of protein c def. received 4 days of iv antibc, urine culture grew staph capitis- contaminant, ID evaluated, pt received 4 days of ceftriaxone, no need for further antibx. Pt doing well, denies any abdominal/back pain, voiding without difficulty, afebrile, labs unremarkable. Pt is medically stable for discharge home. Pt to f/ u with pcp/cardiology to check INR IN 2 days. discussed case with urology who advises outpt follow up for stent removal in office. Condition: Good - Instructions Diet, Activity, Other Instructions: lovenox twice daily, coumadin 7.5mg daily f/u with PCP to check inr in 2-3 days f/u as directed Referrals: Hermilo Alarcon MD [Primary Care Provider] - 1 Week Tres Levine MD., MD [Staff Physician] - 01/15/18 9:45 am (urology, stent removal ) Neo Carey MD [Staff Physician] - 1 Week Disposition: HOME - Home Medications Comprehensive Discharge Medication List: Ambulatory Orders Warfarin Sodium [Coumadin] 7.5 mg PO ASDIR 03/23/14 Atorvastatin Ca [Lipitor] 20 mg PO HS 01/01/18 Cholecalciferol (Vitamin D3) [Vitamin D -] 500 unit PO DAILY 01/01/18 Metoprolol Succinate [Toprol XL -] 50 mg PO DAILY 01/01/18 Enoxaparin [Lovenox -] 90 mg SQ BID 5 Days #10 disp.syrin 01/07/18 Warfarin Sodium [Coumadin] 10 mg PO ASDIR 01/08/18
[2018-01-12] MEDS ORDERED: WARFARIN NA 7.5 MG TABLET (FP) PO ONE (12:39)
--- NOTE | 2018-01-12 12:42 | PN ---
Progress Note, Physician Chief Complaint: Pt sitting in bed in no acute distress. reports urine clear this am. c/o vaginal itching, abd pain improved. otherwise denies chest pain, sob, n/v/d - Current Medication List Current Medications: Active Medications Acetaminophen (Tylenol -) 650 mg PO Q6H PRN PRN Reason: PAIN LEVEL 1-5 Atorvastatin Calcium (Lipitor -) 20 mg PO HS [facility] Last Admin: 01/11/18 21:07 Dose: 20 mg Cholecalciferol (Vitamin D3 -) 500 unit PO DAILY [facility] Last Admin: 01/11/18 09:36 Dose: 500 unit Enoxaparin Sodium (Lovenox -) 90 mg SQ BID [facility] Ceftriaxone Sodium 2 gm/ (Dextrose) 100 mls @ 200 mls/hr IVPB DAILY [facility]; Protocol Last Admin: 01/12/18 10:37 Dose: 200 mls/hr Metoprolol Succinate (Toprol Xl -) 50 mg PO DAILY [facility] Last Admin: 01/12/18 10:39 Dose: 50 mg Ondansetron HCl (Zofran Injection) 4 mg IVPUSH Q6H PRN PRN Reason: NAUSEA AND/OR VOMITING Last Admin: 01/09/18 12:00 Dose: 4 mg Warfarin Sodium (Coumadin -) 7.5 mg PO NOW ONE Stop: 01/12/18 12:40 Warfarin Sodium (Coumadin -) 7.5 mg PO DAILY@1800 [facility] - Objective Vital Signs: Vital Signs Temperature 98.0 F 01/12/18 05:30 Pulse Rate 67 01/12/18 05:30 Respiratory Rate 16 01/12/18 05:30 Blood Pressure 107/67 01/12/18 05:30 O2 Sat by Pulse Oximetry (%) 96 01/10/18 21:00 Constitutional: Yes: Well Nourished, No Distress, Calm Cardiovascular: Yes: WNL, Regular Rate and Rhythm. No: Gallop, Murmur Respiratory: Yes: WNL, Regular, CTA Bilaterally. No: Accessory Muscle Use, Rhonchi, SOB, Tachypnea, Wheezes Gastrointestinal: Yes: WNL, Normal Bowel Sounds, Soft. No: Distention, Tenderness Genitourinary: Yes: WNL Extremities: Yes: WNL Edema: No Neurological: Yes: WNL, Alert, Oriented Psychiatric: Yes: WNL, Alert Labs: CBC, BMP 01/12/18 06:10 01/12/18 06:10 INR, PTT INR 1.11 (0.83-1.09) H 01/12/18 06:10 Problem List - Problems (1) Pyelonephritis Code(s): N12 - TUBULO-INTERSTITIAL NEPHRITIS, NOT SPCF ACUTE OR CHRONIC (2) Hematuria Code(s): R31.9 - HEMATURIA, UNSPECIFIED Qualifiers: Hematuria type: gross Qualified Code(s): R31.0 - Gross hematuria (3) Hydronephrosis, right Code(s): N13.30 - UNSPECIFIED HYDRONEPHROSIS (4) COMPA (acute kidney injury) Code(s): N17.9 - ACUTE KIDNEY FAILURE, UNSPECIFIED (5) Nausea Code(s): R11.0 - NAUSEA (6) Abdominal pain Code(s): R10.9 - UNSPECIFIED ABDOMINAL PAIN Qualifiers: Abdominal location: right lower quadrant Qualified Code(s): R10.31 - Right lower quadrant pain (7) Subtherapeutic international normalized ratio (INR) Code(s): R79.1 - ABNORMAL COAGULATION PROFILE (8) Protein C deficiency Code(s): D68.59 - OTHER PRIMARY THROMBOPHILIA (9) CAD (coronary artery disease) Code(s): I25.10 - ATHSCL HEART DISEASE OF [place] CORONARY ARTERY W/O ANG PCTRS Qualifiers: Coronary Disease-Associated Artery/Lesion type: [place] artery [place] vs. transplanted heart: [place] heart Associated angina: without angina Qualified Code(s): I25.10 - Atherosclerotic heart disease of [place] coronary artery without angina pectoris (10) HTN (hypertension) Code(s): I10 - ESSENTIAL (PRIMARY) HYPERTENSION Qualifiers: Hypertension type: essential hypertension Qualified Code(s): I10 - Essential (primary) hypertension Assessment/Plan (1) Pyelonephritis Assessment/Plan: improved urine culture growing staph-coag neg org- ID consulted repeat urine culture pending ceftriaxone 2g per ID discussed w/ urology who advises outpt follow up on 01/15 Code(s): N12 - TUBULO-INTERSTITIAL NEPHRITIS, NOT SPCF ACUTE OR CHRONIC (2) Hematuria Assessment/Plan: improved monitor for 24 hours since starting AC today Code(s): R31.9 - HEMATURIA, UNSPECIFIED Qualifiers: Hematuria type: gross Qualified Code(s): R31.0 - Gross hematuria (3) Hydronephrosis, right Assessment/Plan: as above Code(s): N13.30 - UNSPECIFIED HYDRONEPHROSIS (4) COMPA (acute kidney injury) Assessment/Plan: resolved Code(s): N17.9 - ACUTE KIDNEY FAILURE, UNSPECIFIED (5) Nausea Assessment/Plan: resolved Code(s): R11.0 - NAUSEA (6) Abdominal pain Assessment/Plan: improved Code(s): R10.9 - UNSPECIFIED ABDOMINAL PAIN Qualifiers: Abdominal location: right lower quadrant Qualified Code(s): R10.31 - Right lower quadrant pain (7) Subtherapeutic international normalized ratio (INR) Assessment/Plan: lovenox to coumadin bridge coumadin 7.5mg x 1 case discussed w/ Hematology Code(s): R79.1 - ABNORMAL COAGULATION PROFILE (8) Protein C deficiency Assessment/Plan: hx of dvt/pe on coumadin outpt lovenox to coumadin bridge started, ok per hematology Code(s): D68.59 - OTHER PRIMARY THROMBOPHILIA (9) CAD (coronary artery disease) Assessment/Plan: no acute acs borderline stress test outpt, plan for cta by cardiology continue statin/ ac Code(s): I25.10 - ATHSCL HEART DISEASE OF [place] CORONARY ARTERY W/O ANG PCTRS Qualifiers: Coronary Disease-Associated Artery/Lesion type: [place] artery [place] vs. transplanted heart: [place] heart Associated angina: without angina Qualified Code(s): I25.10 - Atherosclerotic heart disease of [place] coronary artery without angina pectoris (10) HTN (hypertension) Assessment/Plan: controlled continue metoprolol Code(s): I10 - ESSENTIAL (PRIMARY) HYPERTENSION Qualifiers: Hypertension type: essential hypertension Qualified Code(s): I10 - Essential (primary) hypertension Dispo: Home tomrw if no clinical changes
[2018-01-12] MEDS ORDERED: CHOLECALCIFEROL (VITAMIN D3) 400 UNIT TABLET (FP) PO SCH (13:15)
[2018-01-12] MEDS: FLUCONAZOLE 100 MG TABLET (UD) PO SCH ×2 (13:39→21:27)
--- NOTE | 2018-01-12 14:03 | PN ---
Physical Exam: SUBJECTIVE: Hematology-oncology Patient seen and examined Feels better. States urine got clear this morning. No events overnight. OBJECTIVE: Vital Signs Period Temp Pulse Resp BP Sys/Martinez Pulse Ox Last 24 Hr 97.8 F-99.1 F 67-78 16-20 107-126/64-68 GENERAL: Awake, alert, and fully oriented, HEAD: Normal with no signs of trauma. EYES: conjunctiva clear. No lid lag. EARS, NOSE, THROAT: moist mucous membranes. LUNGS: Breath sounds equal, clear to auscultation bilaterally. No wheezes, and no crackles. No accessory muscle use. Axilla : no lymphnodes palpable Breast: No lump palpable. HEART: Regular rate and rhythm, normal S1 and S2 ABDOMEN: Soft, non tende, not distended, normoactive bowel sounds, no guarding, MUSCULOSKELETAL: Normal range of motion at all joints. No bony deformities or tenderness UPPER EXTREMITIES: 2+ pulses, warm, well-perfused. No cyanosis. No clubbing. LOWER EXTREMITIES: warm, well-perfused. No calf tenderness. No peripheral edema. PSYCHIATRIC: Cooperative. Good eye contact. SKIN: Warm, dry, Laboratory Results - last 24 hr 01/12/18 01/12/18 01/12/18 06:10 06:10 06:10 WBC 7.7 RBC 3.70 Hgb 10.0 L Hct 30.3 L MCV 81.8 MCH 27.0 MCHC 33.0 RDW 14.3 Plt Count No Result Required. Absolute Neuts (auto) 4.0 Neutrophils % 51.9 Lymphocytes % 32.7 Monocytes % 10.3 H Eosinophils % 4.2 Basophils % 0.9 Nucleated RBC % 0 Platelet Estimate Adequate Platelet Comment Slt plt clumping PT with INR 12.50 INR 1.11 H Sodium 144 Potassium 4.0 Chloride 110 H Carbon Dioxide 26 Anion Gap 8 BUN 9 Creatinine 0.9 Creat Clearance w eGFR > 60 Random Glucose 130 H Calcium 8.8 Active Medications Generic Name Dose Route Start Last Admin Trade Name Freq PRN Reason Stop Dose Admin Acetaminophen 650 mg 01/09/18 12:31 Tylenol - PO Q6H PRN PAIN LEVEL 1-5 Atorvastatin Calcium 20 mg 01/08/18 22:00 01/11/18 21:07 Lipitor - PO 20 mg HS [facility] Administration Cholecalciferol 400 unit 01/12/18 13:15 Vitamin D3 - PO DAILY [facility] Enoxaparin Sodium 90 mg 01/12/18 22:00 Lovenox - SQ BID [facility] Fluconazole 200 mg 01/12/18 13:30 01/12/18 13:39 Diflucan - PO 01/12/18 22:01 200 mg BID [facility] Administration Ceftriaxone Sodium 2 gm/ 100 mls @ 200 mls/hr 01/10/18 10:00 01/12/18 10:37 Dextrose IVPB 200 mls/hr DAILY [facility] Administration Protocol Metoprolol Succinate 50 mg 01/08/18 11:00 01/12/18 10:39 Toprol Xl - PO 50 mg DAILY [facility] Administration Warfarin Sodium 7.5 mg 01/13/18 18:00 Coumadin - PO DAILY@1800 [facility] ASSESSMENT/PLAN: 47 year old female who was discharged on 01/07/18 s/p right ureteroscopy with stent placement for right hydronephrosis, pyelonephritis came back to the hospital on 01/08/18 in midnight because of pain in abdomen and hematuria. Hematuria. COMPA UTI H/O DVT, PE and protein C deficiency. - Urine clear since morning. -Placed on full dose of a/c with lovenox. Can bridge with lovenox and coumadin as outpatient. Can follow in office and reassess for ?? of Protein C deficiency. Dispo: We will continue to follow the patient. Thank you for this consultative opportunity. Visit type - Emergency Visit Emergency Visit: Yes ED Registration Date: 01/08/18 Care time: The patient presented to the Emergency Department on the above date and was hospitalized for further evaluation of their emergent condition. - New Patient This patient is new to me today: No - Critical Care Critical Care patient: No
[2018-01-12] MEDS: LACTOBACILLUS ACIDOPHILUS 1 TABLET PO SCH (18:09)
--- NOTE | 2018-01-12 18:56 | PN ---
Teaching Attending Note Name of Resident: Pelon Hogue ATTENDING PHYSICIAN STATEMENT I saw and evaluated the patient. I reviewed the resident's note and discussed the case with the resident. I agree with the resident's findings and plan as documented. SUBJECTIVE: Patient seen and examined Urine has cleared significantly. Placed on full dose of a/c with lovenox. Can bridge with lovenox and coumadin as outpatient. Can follow in office and reassess for ?? of Protein C deficiency. OBJECTIVE: ASSESSMENT AND PLAN:
[2018-01-12] MEDS: ATORVASTATIN CA 20 MG TABLET (FP) PO SCH (21:27)
[2018-01-12] MEDS: ENOXAPARIN NA (PORCINE) 100 MG/1 ML DISP.SYRIN SQ SCH (21:27)
[2018-01-13 06:05] VITALS: PULSE 75
[2018-01-13 08:07] LABS: BASO % 1.1 % (0-2.0); EOS % 3.7 % (0-4.5); HEMATOCRIT 29.7 % (32.4-45.2); LYMPH % 35.7 % (8-40); MCH 27.4 pg (25.7-33.7); MCHC 33.6 g/dl (32.0-36.0); MEAN CELL VOLUME 81.6 fl (80-96); MONO % 9.9 % (3.8-10.2); NEUT % 49.6 % (42.8-82.8); PLATELET COUNT 350 K/MM3 (134-434); RBC 3.64 M/mm3 (3.60-5.2); RDW 14.4 % (11.6-15.6); WHITE BLOOD COUNT 6.6 K/mm3 (4.0-10.0)
[2018-01-13 08:15] LABS: CHLORIDE 113 mmol/L (98-107); INR 1.18 (0.83-1.09); POTASSIUM 4.3 mmol/L (3.5-5.1); PROTHROMBIN TIME (PATIENT) 13.3 SEC (9.7-13.0); SODIUM 149 mmol/L (136-145)
[2018-01-13 08:21] LABS: ANION GAP 10 (8-16); BLOOD UREA NITROGEN 10 mg/dL (7-18); CALCIUM 9.3 mg/dL (8.5-10.1); CO2 26 mmol/L (21-32); CREATININE 0.9 mg/dL (0.55-1.02); GLUCOSE,RANDOM 105 mg/dL (74-106)
[2018-01-13] MEDS: ENOXAPARIN NA (PORCINE) 100 MG/1 ML DISP.SYRIN SQ SCH (10:11)
[2018-01-13] MEDS: LACTOBACILLUS ACIDOPHILUS 1 TABLET PO SCH (10:11)
[2018-01-13 11:56] VITALS: BP 112/69; TEMP 98.4
[2018-01-13 14:15] LABS: DRVVT - 42.4 sec (0.0-47.0)
[2018-01-13] MEDS ORDERED: WARFARIN NA 7.5 MG TABLET (FP) PO SCH (18:00)
== END 2018-01-13 13:13 | disposition home or self-care (01) | DRG 690 ==
LOC: JER 03:04 → JERBED 08:11 → J6S 11:49
PROVIDERS: ADMIT Internal Medicine; ATTEND Internal Medicine
DX: N10 Acute pyelonephritis (principal); D68.59 Other primary thrombophilia; R31.0 Gross hematuria; N13.30 Unspecified hydronephrosis; N17.9 Acute kidney failure, unspecified; E86.0 Dehydration; R11.0 Nausea; I25.10 Atherosclerotic heart disease of native coronary artery without angina pectoris; I10 Essential (primary) hypertension; K21.9 Gastro-esophageal reflux disease without esophagitis; D72.829 Elevated white blood cell count, unspecified; R10.31 Right lower quadrant pain; R79.1 Abnormal coagulation profile
CPT/HCPCS: 36415; 74150-TC; 76000-TC-FY; 80048; 80053; 81003; 81015; 82550; 83605; 83735; 84100; 84484; 85025; 85610; 85613; 85730; 85732; 86140; 87040; 87086; 87186; 93005; 93010; 99282-25; J0131; J7030

== ENCOUNTER 2023-03-21 04:44 | Day surgery (SDC) | payer BC ==
[2023-03-19 11:06] VITALS: BMI 34.3
[~2023-03-21 04:44] MED LIST: GENTAMICIN SO4 80 MG/2 ML VIAL IVPB ONE; LIDOCAINE HCL 1%, 10 MG/ML (20ML VIAL) SQ ONE
[2023-03-21] MEDS ORDERED: LIDOCAINE HCL 1%, 10 MG/ML (20ML VIAL) ONE (12:59)
[2023-03-21] MEDS ORDERED: BACITRACIN ZINC 15 GM TUBE TOPICAL OINTMENT ONE (13:00)
[2023-03-21] MEDS ORDERED: GENTAMICIN SO4 80 MG/2 ML VIAL ONE (13:02)
[2023-03-21] MEDS ORDERED: MIDAZOLAM HCL 2 MG/2 ML SINGLE DOSE VIAL ONE ×2 (13:49→14:36)
[2023-03-21] MEDS ORDERED: PROPOFOL 40 ML ONE (13:49)
[2023-03-21] MEDS ORDERED: FENTANYL CITRATE/PF 50 MCG/ML VIAL ONE ×3 (13:49→16:31)
[2023-03-21] MEDS ORDERED: ACETAMINOPHEN 1000 MG/100 ML BAG IVPB ONE (13:51)
[2023-03-21] MEDS ORDERED: DEXTROSE 5%-0.45% SALINE 1,000 ML IV SCH (14:00)
[2023-03-21] MEDS ORDERED: ceFAZolin SODIUM 1 GM VIAL IVPB ONE (14:40)
[2023-03-21] MEDS ORDERED: LIDOCAINE HCL 1%, 10 MG/ML (20ML VIAL) INF ONE (14:47)
[2023-03-21] MEDS ORDERED: GENTAMICIN SO4 80 MG/2 ML VIAL IVPB ONE (14:47)
[2023-03-21] MEDS ORDERED: LIDOCAINE HCL 1%, 10 MG/ML (20ML VIAL) SQ ONE (14:47)
[2023-03-21] MEDS ORDERED: ONDANSETRON 4 MG/2 ML VIAL IVPUSH PRN (15:45)
[2023-03-21] MEDS ORDERED: ACETAMINOPHEN INJECTION 100 ML IVPB ONE (16:07)
[2023-03-21] MEDS ORDERED: oxyCODONE HCL 5 MG TABLET PO PRN (17:57)
[2023-03-21] MEDS ORDERED: oxyCODONE HCL 10 MG SUSTAINED ACTING TABLET ONE (18:01)
[2023-03-21 19:02] VITALS: RESP 20; TEMP 97.2
[2023-03-21 19:04] VITALS: BP 119/64; PULSE 60
== END 2023-03-21 18:32 | disposition home or self-care (01) ==
LOC: JASU-SURG 04:44
PROVIDERS: ATTEND Urology
PROC: 01HY0MZ Insertion of Neurostimulator Lead into Peripheral Nerve, Open Approach (ICD-10-PCS; 2023-03-21)
PROC: 0JPT0MZ Removal of Stimulator Generator from Trunk Subcutaneous Tissue and Fascia, Open Approach (ICD-10-PCS; 2023-03-21)
PROC: 0JH70BZ Insertion of Single Array Stimulator Generator into Back Subcutaneous Tissue and Fascia, Open Approach (ICD-10-PCS; 2023-03-21)
PROC: 01PY3MZ Removal of Neurostimulator Lead from Peripheral Nerve, Percutaneous Approach (ICD-10-PCS; principal; 2023-03-21 14:00)
DX: N39.498 Other specified urinary incontinence (principal); R35.0 Frequency of micturition
CPT/HCPCS: 64561; 64590; C1778; C1827; 76000-TC-FY; 94760